=== PATIENT | female | born 1950 | race Caucasian/White ===

== ENCOUNTER 2024-03-02 14:29 | Inpatient (IN) ==
--- NOTE | 2024-03-02 14:36 | Emergency Department Note ---
Impression & Plan New onset of congestive heart failure, Type 2 diabetes mellitus, CKD (chronic kidney disease) stage 3, GFR 30-59 ml/min, Acute dyspnea ED Provider Note NAME: GREGORY HAMILTON AGE: 73 SEX: F : 1950 ARRIVES VIA: Ambulance INFORMANT: Patient, EMS report ED PROVIDER(S): Jeffry Coe MD CHIEF COMPLAINT: Shortness of breath MEDICAL DECISION MAKING: Patient presents due to concern for shortness of breath. IV was established and blood work was obtained. Patient was noted to be hypertensive. Patient does have bibasilar crackles and significant lower extremity edema consistent with hypervolemia and volume overload. Patient was ordered nitro to help with elevated blood pressure as well as 40 of Lasix. Patient's blood work shows a normal white count hemoglobin of 17.8 with a platelet count of 122. The patient's kidney function is unremarkable. Patient does have elevated troponin of 65 and a BNP of 1071. Upon reassessment the patient did look to be improved. I did speak with the on-call hospital service Sophy De La Paz and the patient was admitted by Dr. Boo. Discussion w/ other healthcare providers: None Prior /Outside records reviewed: I reviewed a PCP visit from August 10, 2023. Patient was seen for follow-up. Patient has been having problems with her CGM. Reported good sleep and appetite. Known history of type 2 diabetes reported foreign body of soft tissue of the humerus. CKD stage III. Visit note does not note any lower extremity swelling. Differential diagnosis: Reactive airway disease, pneumonia, pneumothorax, COPD, CHF, ACS, pulmonary embolism, musculoskeletal, GERD as well as other pathologies were considered. Diagnostics, as interpreted by me: ECG: Sinus tachycardia with PVCs, rate of 110, normal DC and QRS, normal axis no ST elevations Cardiac monitoring: An order was placed for continuous cardiac monitoring. The monitor shows a rate of 110 with tachycardic and regular rhythm. Patient was placed on pulse oximetry Medical decision rules: None Imaging studies: I informally interpreted the patient's chest x-ray shows bilateral pleural effusions with formal report to follow. HPI: Patient presents due to concern for worsening shortness of breath. Patient is hard of hearing. She states that she got a virus at the beginning of January and does not report any treatments. She does follow with a [facility]. The patient does complain of shortness of breath and cough that is nonproductive. Patient per EMS and nursing report intermittently takes insulin. Patient denies taking any other medications. Patient's history is somewhat limited at this time. PAST MEDICAL HISTORY: See Below PAST SURGICAL HISTORY: See Below SOCIAL HISTORY: See Below HOME MEDICATIONS: See Below ALLERGIES: See Below VITALS: See Below PHYSICAL EXAMINATION: GENERAL: Ill in appearance, mild tachypnea. Hard of hearing. EYE EXAM: Normal conjunctiva. PERRL, no anisocoria and EOM's grossly intact w/o pain. OROPHARYNX: Dry mucus membranes, grossly normal dentition. NECK: Trachea midline, no stridor. JVD noted. LUNGS: Bibasilar crackles with decreased bilateral breath sounds bilateral bases. Mild tachypnea. HEART: Tachycardic and regular, no MRG. ABDOMEN: Abdomen soft, non-tender, no masses, no rebound or guarding. BACK: No CVA TTP. SKIN: No rashes and no bruising. UPPER EXTREMITIES: Upper extremities are grossly normal. LOWER EXTREMITIES: Grossly normal, lower extremity edema without calf pain or erythema, pedal pulses present compartments are soft. NEURO EXAM: A&O x3, cranial nerves II-XII grossly intact, normal speech, moves all 4 extremities. Past Med/Surg History Problem List (Updated 03/02/24 @ 17:26 by Jeffry Coe MD) Acute dyspnea (Acute) New onset of congestive heart failure (Acute) CKD (chronic kidney disease) stage 3, GFR 30-59 ml/min (Acute) Type 2 diabetes mellitus (Acute) Medical History Hypothyroidism Migraine without aura and without status migrainosus, not intractable Pneumothorax, left Multiple fractures of ribs Sternal fracture Surgical History History of tonsillectomy History of hysterectomy History of appendectomy Family History Father Cancer Mother Hypertension Social History Smoking Status: Never smoker Preferred Language: Mohawk Feels Safe at Home: Yes Allergies Allergies Allergy/AdvReac Type Severity Reaction Status Date / Time No Known Allergies Allergy Verified 03/02/24 16:01 Home Meds Home Medications Medication Instructions Recorded Confirmed acetaminophen 325 mg tablet 650 mg PO TID PRN pain/fever 03/02/24 03/02/24 (Tylenol) insulin aspart U-100 100 unit/mL 6 unit subcut TID 03/02/24 03/02/24 (3 mL) subcutaneous pen insulin glargine 100 unit/mL (3 20 unit subcut HS 03/02/24 03/02/24 mL) subcutaneous pen (Lantus Solostar U-100 Insulin) metformin 500 mg tablet,extended 500 mg PO BIDM 03/02/24 03/02/24 release 24 hr Results & Data (ED) Vital Signs Vital Signs - 24 hr 03/02/24 14:35 03/02/24 14:45 03/02/24 14:46 Temperature 36.5 C Temperature Source Oral Pulse Rate 109 H Pulse Rate [Apical] Respiratory Rate 18 Blood Pressure 161/117 H Blood Pressure [Left Arm] Blood Pressure Mean 131 Blood Pressure Mean [Left Arm] Blood Pressure Position Semi-fowlers Pulse Oximetry 97 Oxygen Delivery Method Room Air Room Air Room Air Sepsis Recent Fever Within 48 Hours No Sepsis New/Unexplained Change in Mental Status No Sepsis Action Taken by Nursing No Action Required 03/02/24 14:46 03/02/24 14:50 03/02/24 17:08 Temperature 36.5 C Temperature Source Oral Pulse Rate 109 H Pulse Rate [Apical] 108 H 112 H Respiratory Rate 18 18 Blood Pressure Blood Pressure [Left Arm] 161/117 H 156/121 H Blood Pressure Mean Blood Pressure Mean [Left Arm] 131 132 Blood Pressure Position Pulse Oximetry 97 95 96 Oxygen Delivery Method Room Air Room Air Room Air Sepsis Recent Fever Within 48 Hours Sepsis New/Unexplained Change in Mental Status Sepsis Action Taken by [facility] Medications Current Medication List: was personally reviewed by me Laboratory Data Attestation: I reviewed the patient's lab results. 03/02/24 14:50 03/02/24 14:50 Lab Results 03/02/24 03/02/24 03/02/24 Range/Units 14:50 14:59 15:54 WBC 9.58 (4.8-10.8) K/ul RBC 6.61 H (4.20-5.40) M/uL Hgb 17.8 H (12.0-16.0) g/dl POC Hgb 19.4 H (12.0-16.0) g/dl Hct 57.8 H (37.0-47.0) % POC Hct 57 H (37-47) % MCV 87.4 (80.0-100.0) fL MCH 26.9 (25.0-34.0) pg MCHC 30.8 L (32.0-36.0) g/dL RDW Std Deviation 47.3 H (36.4-46.3) fL RDW Coeff of Gypsy 17.0 H (11.5-14.5) % Plt Count 122 L (130-400) K/uL MPV 11.8 (9.4-12.4) fL Immature Gran % (Auto) 0.5 % Neut % (Auto) 81.4 % Lymph % (Auto) 6.3 % [place] % (Auto) 10.8 % Eos % (Auto) 0.8 % Baso % (Auto) 0.2 % Neut # (Auto) 7.80 H (1.40-6.50) K/uL Lymph # (Auto) 0.60 L (1.20-3.40) K/uL [place] # (Auto) 1.03 H (0.11-0.59) K/uL Eos # (Auto) 0.08 (0.00-0.50) K/uL Baso # (Auto) 0.02 (0.00-0.20) K/uL Immature Gran # (Auto) 0.05 (0.01-0.20) K/uL PT 12.5 H (9.0-12.0) Seconds INR 1.2 H (0.9-1.1) APTT 24 (21-31) Seconds PTT Ratio 0.9 POC Sodium 144 (135-144) mmol/L Sodium 144 (136-145) mmol/L POC Potassium 4.1 (3.3-5.0) mmol/L Potassium 4.2 (3.5-5.1) mmol/L POC Chloride 104 (101-112) mmol/L Chloride 104 (98-107) mmol/L Carbon Dioxide 28 (21-32) mmol/L POC Total CO2 24 (24-31) mmol/L Anion Gap 12 H (3-11) POC Anion Gap 21.0 (16-25) mmol/L POC BUN 30 H (7-18) mg/dl BUN 30 H (6-23) mg/dl Creatinine 0.80 (0.6-1.2) mg/dl POC Creatinine 0.8 (0.6-1.3) mg/dl Est Cr Clr Drug Dosing Not Reportable Est GFR ( Amer) 83.6 ml/min Est GFR (Non-Af Amer) 72.1 ml/min BUN/Creatinine Ratio 37.5 H (10-20) Glucose 163 H (70-99(Fasting)) mg/dl POC Glucose (other) 159 H (70-99) mg/dl Calcium 9.5 (8.6-10.3) mg/dl POC Ioniz Calcium Delmis 1.11 L (1.12-1.32) mmol/l Magnesium 2.2 (1.7-2.4) mg/dl Total Bilirubin 1.9 H (0.2-1.0) mg/dl AST 27 (13-39) U/L ALT 25 (7-52) U/L Alkaline Phosphatase 111 H (34-104) U/L Troponin I High Sens 65.4 H* (0-14) pg/ml B-Natriuretic Peptide 1071 H (0-100) pg/ml Total Protein 7.1 (6.0-8.3) gm/dl Albumin 4.1 (3.4-5.0) gm/dl Globulin 3.0 (2.5-4.0) gm/dl Albumin/Globulin Ratio 1.4 (0.9-2) Administered Medications Discontinued Medications Furosemide (Furosemide 40 Mg/4 Ml Vial) 40 mg IV ONE ONE Stop: 03/02/24 14:48 Last Admin: 03/02/24 15:09 Dose: 40 mg Documented By: SEAN Nitroglycerin (Nitroglycerin Sl 0.4 Mg/Tab Tab) 0.4 mg SL NOW STA Stop: 03/02/24 14:48 Last Admin: 03/02/24 15:07 Dose: 0.4 mg Documented By: SEAN Imaging Data Radiologist's Impression: Chest X-Ray 03/02/24 14:48 XR chest 1V portable HISTORY: 73 years-old Female Dyspnea acute shortness of breath COMPARISON: Chest CT 12/28/2022 TECHNIQUE: AP view of the chest. FINDINGS: Bilateral breast implants with capsular calcifications redemonstrated on the right. Cardiomegaly. Pulmonary vascular congestion. Layering right greater than left pleural effusions with bibasilar consolidation. No pneumothorax. Bones appear grossly intact. IMPRESSION: 1. Cardiomegaly with pulmonary vascular congestion. 2. Layering pleural effusions with bibasilar consolidation, right greater than left. ACT 112: Negative or not required by law. The above report was generated using voice recognition software. It may contain grammatical, syntax or spelling errors. Electronically signed by: Terry Jasso M.D. 03/02/2024 3:15 PM Discharge Plan Visit Data Chief Complaint: Shortness of Breath/Dyspnea Stated Complaint: SOB ED Provider: Jeffry Coe Discharge Problem: New onset of congestive heart failure, Type 2 diabetes mellitus, CKD (chronic kidney disease) stage 3, GFR 30-59 ml/min, Acute dyspnea Forms Stand Alone Forms: [email or web address] Prescriptions Prescriptions: No Action metformin 500 mg tablet extended release 24 hr 500 mg PO BIDM Rx Instructions: PER PT "NOT TAKEN FOR COUPLE OF DAYS, NEED TO HUMANITIES TEACHER A PHARMACY". insulin aspart U-100 100 unit/mL (3 mL) insulin pen 6 unit SUBCUT TID Rx Instructions: PER PT "NOT TAKEN SINCE January, NEED TO HUMANITIES TEACHER AT PHARMACY". acetaminophen [Tylenol] 325 mg Tablet 650 mg PO TID PRN (Reason: pain/fever) insulin glargine [Lantus Solostar U-100 Insulin] 100 unit/mL (3 mL) insulin pen 20 unit SUBCUT HS Rx Instructions: PER EXT MED HX--LAST FILLED 03/23/23 Referrals Referrals: PCP,NO [Physician] - Discharge Problem: Type 2 diabetes mellitus Qualifiers: Diabetes mellitus intermediate insulin use: unspecified intermediate insulin use status CKD (chronic kidney disease) stage 3, GFR 30-59 ml/min Qualifiers: Chronic kidney disease stage 3 subtype: unspecified whether 3a or 3b Qualified Code(s): N18.30 - Chronic kidney disease, stage 3 unspecified
[2024-03-02] MEDS: NITROGLYCERIN SL 0.4 MG/TAB TAB SL STA (15:07)
[2024-03-02] MEDS: FUROSEMIDE 40 MG/4 ML VIAL IV ONE (15:09)
[2024-03-02 15:13] LABS: iSTAT Creatinine 0.8 mg/dl (0.6-1.3); iSTAT Hemoglobin 19.4 g/dl (12.0-16.0); iSTAT Ionized Calcium 1.11 mmol/l (1.12-1.32); iSTAT Potassium 4.1 mmol/L (3.3-5.0)
[2024-03-02 15:16] LABS: Hematocrit (blood only) 57.8 % (37.0-47.0); Hemoglobin 17.8 g/dl (12.0-16.0); Mean Corpuscular Hemoglobin 26.9 pg (25.0-34.0); Mean Corpuscular Hgb Conc 30.8 g/dL (32.0-36.0); Mean Corpuscular Volume 87.4 fL (80.0-100.0); Mean Platelet Volume 11.8 fL (9.4-12.4); Platelet Count 122 K/uL (130-400); RDW Standard Deviation 47.3 fL (36.4-46.3); Red Blood Count 6.61 M/uL (4.20-5.40); White Blood Count 9.58 K/ul (4.8-10.8)
--- NOTE | 2024-03-02 15:16 | XRay Report ---
XR chest 1V portable HISTORY: 73 years-old Female Dyspnea acute shortness of breath COMPARISON: Chest CT 12/28/2022 TECHNIQUE: AP view of the chest. FINDINGS: Bilateral breast implants with capsular calcifications redemonstrated on the right. Cardiomegaly. Pul monary vascular congestion. Layering right greater than left pleural effusions with bibasilar consoli dation. No pneumothorax. Bones appear grossly intact. IMPRESSION: 1. Cardiomegaly with pulmonary vascular congestion. 2. Layering pleural effusions with bibasilar consolidation, right greater than left. ACT 112: Negative or not required by law. The above report was generated using voice recognition software. It may contain grammatical, syntax o r spelling errors. Electronically signed by: Terry Jasso M.D. 03/02/2024 3:15 PM
[2024-03-02 15:27] LABS: Alanine Aminotransferase 25 U/L (7-52); Albumin Globulin Ratio 1.4 (0.9-2); Albumin Level 4.1 gm/dl (3.4-5.0); Alkaline Phosphatase 111 U/L (34-104); Anion Gap 12 (3-11); Aspartate Aminotransferase 27 U/L (13-39); BUN Creatinine Ratio 37.5 (10-20); Bilirubin,Total 1.9 mg/dl (0.2-1.0); Blood Urea Nitrogen 30 mg/dl (6-23); Calcium 9.5 mg/dl (8.6-10.3); Carbon Dioxide 28 mmol/L (21-32); Chloride 104 mmol/L (98-107); Est GFR (African American) 83.6 ml/min; Est GFR (Non-African American) 72.1 ml/min; Glucose 163 mg/dl (70-99(Fasting)); Magnesium 2.2 mg/dl (1.7-2.4); Potassium 4.2 mmol/L (3.5-5.1); Sodium 144 mmol/L (136-145); Total Protein 7.1 gm/dl (6.0-8.3)
[2024-03-02 15:36] LABS: Troponin I High Sensitivity 65.4 pg/ml (0-14)
[2024-03-02 15:45] LABS: Basophils # (auto) 0.02 K/uL (0.00-0.20); Basophils % (auto) 0.2 %; Eosinophils # (auto) 0.08 K/uL (0.00-0.50); Eosinophils % (auto) 0.8 %; Immature Granulocytes # (auto) 0.05 K/uL (0.01-0.20); Immature Granulocytes % (auto) 0.5 %; Lymphocytes % (auto) 6.3 %; Monocytes # (auto) 1.03 K/uL (0.11-0.59); Monocytes % (auto) 10.8 %; Neutrophils % (auto) 81.4 %
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
[2024-03-02 16:13] LABS: INR 1.2 (0.9-1.1); Partial Thromboplastin Ratio 0.9; Partial Thromboplastin Time 24 Seconds (21-31); Prothrombin Time 12.5 Seconds (9.0-12.0)
--- NOTE | 2024-03-02 16:18 | Electrocardiogram Report ---
Test Reason : Blood Pressure : / mmHG Vent. 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
[2024-03-02 17:20] LABS: Appearance Urine Clear (Clear); Bacteria Urine Automated 3+ (None Seen); Bilirubin Urine Negative (Negative); Blood Urine Negative (Negative); Color Urine Yellow; Epithelial Cell Urine Auto 0-2 /hpf (0-2); Glucose Urine UA Negative (Negative); Ketones Urine Negative (Negative); Leukocyte Esterase Urine Negative (Negative); Nitrite Urine Negative (Negative); Protein Urine Trace (Negative); RBC Urine Automated 0-2 /hpf (0-2); Specific Gravity Urine 1.008 (1.000-1.030); Urobilinogen Urine Negative (Negative); WBC Urine Automated 0-5 /hpf (0-5); pH Urine 5.5 (4.5-7.5)
[2024-03-02 18:24] LABS: Troponin I High Sensitivity 54.7 pg/ml (0-14)
[2024-03-02 18:30] LABS: Thyroid Stimulating Hormone 4.596 uIu/ml (0.300-4.500)
[2024-03-02] MEDS ORDERED: GLUCOSE 10 TAB/TUBE PO PRN (18:39)
[2024-03-02] MEDS ORDERED: CARBOHYDRATES FOR HYPOGLYCEMIA PO PRN (18:39)
[2024-03-02] MEDS ORDERED: DEXTROSE 50% 50 ML SYRINGE IV PRN (18:39)
[2024-03-02] MEDS ORDERED: GLUCOSE 40% GEL 15 GM TUBE PO PRN (18:39)
[2024-03-02] MEDS ORDERED: GLUCAGON FOR INJ 1 MG VIAL SQ PRN (18:39)
[2024-03-02 19:23] LABS: T4 Free Thyroxine 1.42 ng/dl (0.61-1.60)
[2024-03-02] MEDS: lisinopril 2.5 MG TAB PO SCH (19:38)
[2024-03-02] MEDS: FUROSEMIDE 40 MG/4 ML VIAL IV SCH (19:39)
[2024-03-02] MEDS: LANTUS PER UNIT CHARGE SQ SCH (21:22)
[2024-03-02] MEDS: INSULIN ASPART PER UNIT CHARGE SC SCH (21:22)
[2024-03-02] MEDS: HEPARIN SOD 5,000 UNIT/0.5 ML VIAL SQ SCH (21:23)
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
--- OUTSIDE RECORDS SUMMARY | 2024-03-02 21:25 | External Medical Summary | Summary of Care ---
Author Name Unknown Organization [facility] Address [address] [place] [address] Phone [phone] Care Team Providers Care Contact Lens Technician Name Role Phone Mago Gutierrez PA-C Primary Care Provider [phone] Encounter Details Date Type Department Care Team (Late st Contact Info) Description [facility] [address] [place] [address] Mago Gutierrez PA-C [address] [facility] [place] [address] Allergies No known active allergiesdocumented as of this encounter (statuses as of 10/16/2023) Medications Medication Sig Dispensed Refills Start Date [...] Strip 0 01/01/2023 Active OneTouch Delica Plus [id number] Use as directed. 200 Each 0 01/01/2023 [...] inject insulin. 400 Each 1 04/27/2023 Active documented as of this encounter (statuses as of 10/16/2023) Active Problems Problem Noted Date Diagnosed Date [...] as of this encounter (statuses as of 10/16/2023) Resolved Problems Problem Noted Date Diagnosed Date Resolved Date Migraine without status migr ainosus, not intractable 02/03/2023 08/10/2023 Compression fracture of L2 lumbar vertebra 01/01/2023 08/10/2023 Menopause 06/02/2004 09/20/2017 Hypothyroidism 06/02/2004 08/10/2023 Migraine 09/06/2017 documented as of this encounter (statuses as of 10/16/2023) Immunizations Name Administration Dates Next Due Pneumococcal Conjugate Vacc, 13 Valent (Prevnar) 11/04/2017 TD, Preservative Free 11/04/2017, 018(Deferred: Patient Refused) [...] (15 years old or older) No 12/29/19 Cognitive Status Response Date of Assessm ent Because of a physical, menta l, or emotional condition, do you have serious difficulty concentrating, remembering, or making decisions? (5 years old or older) No 12/28/2022 documented as of this encounter Miscellaneous Notes * Telephone Encounter - Alicia Gonzalez CPhT - 07/17/2023 10:23 AM EST Patient calling stating her Jose Martin Sensor is not working, advised patient to contact her pharmacy for further assistance and they should be able to give her a new one. Thank you, Alicia Gonzalez, Carousel Operator I [facility] (Formerly Telepharmacy) 07/17/2023, 10:30 AM documented in this encounter Plan of Treatment Upcoming Encounters Date Type Department Care Team (Late st Contact Info) Description 02/08/2024 2:00 PM EDT Office Visit Family Practice [facility] [place] [address] [place] [address] Mago Gutierrez PA-C [address] [facility] [place] [address] Health Maintenance Due Date Last Done Comments DXA Scan 1950 B-12 1968 Hepatitis C Screening 1966 Zoster Vaccines (1 of 2) 1998 COVID-19 Vaccine (2022- season) 2023 Influenza Vaccine (FLU shot) (#1) 2023 HbA1c 07/01/2023 12/29/2022, 09/09, 09/20/2017 GFR 07/04/2023 01/01/2023, 12/08, 12/30/2022, Additional history exists CKD HGB USE SMARTSET 69780 01/02/202401/01, 12/31/2022, 12/30/2022, Additional history exists CKD PHOS USE SMARTSET 41863 01/02/202412/08, 12/31/2022, 12/30/2022, Additional history exists Albumin/Creatinine [...] the patient have Health Care Power of Nurse Practitioner Home Assessments? No Care Teams Contact Lens Technician Relationship Specialty Start Date End Date Beverleynovember DEVYN [place] [address] [place] [address] PCP - General Physician Engraver Lettering 04/05/23 documented as of this encounter
--- OUTSIDE RECORDS SUMMARY | 2024-03-02 21:25 | External Medical Summary | Summary of Care ---
Author Name Unknown Organization [facility] Address [address] [place] [address] Phone [phone] Care Team Providers Care Child Development Teacher Name Role Phone Mago Gutierrez PA-C Primary Care Provider [phone] Reason for Visit * Reason Onset Date Comments Medication Refill 02/07/2024 Encounter Details Date Type Department Care Team (Late st Contact Info) Description 02/07/[facility] [address] [facility] [place] [address] Mago Gutierrez PA-C [address] [facility] [place] [address] Type 2 diabetes mellitus with other specified complication, unspecified whether shelter insulin use (HCC)* Allergies No known active allergiesdocumented as of this encounter (statuses as of 02/14/2024) Medications Medication Sig Dispensed Refills Start Date End Date Status Lidocaine 4 % External Patch (Aspercreme) Place 1 Patch topically on the skin daily in the morning over 12 hours. Leave on for 12 hours, then remove and leave off for 12 hours before applying new patch. Do not start before January 02, 2023. 30 Patch 01/02/2023 Active Additional Information Patient not taking.Reported on 08/10/2023 Sennosides 8.6 MG Oral Tablet (Senokot) Take 2 Tablets by mouth in the morning. Do not start before January 02, 2023. 60 Tablet 01/02/2023 Active Additional Information Patient not taking.Reported on 02/03/2023 traMADol HCl 50 MG Oral Tablet (Ultram) Take one-half tablet by mouth every 4 hours as needed for moderate pain, may take 1 tablet every 4 hours if needed for severe pain. 15 Tablet 01/01/2023 Active Additional Information Patient not taking.Reported on 02/03/2023 OneTouch Verio In Vitro Strip (Glucose Blood) Check glucose before meals and before bed 200 Strip 01/01/2023 Active OneTouch Delica Plus [id number] Use as directed. 200 Each 01/01/2023 Active Acetaminophen 325 MG Oral Tablet Take 1 Tablet by mouth every 6 hours as needed. Active Lantus SoloStar 100 UNIT/ML Subcutaneous Solution Pen-injector (Insulin Glargine Solostar) INJECT 20 UNITS UNDER THE SKIN EVERY NIGHT AT BEDTIME 15 mL 1 03/22/2023 Active Unifine Pentips 32G X 4 MM (Insulin Pen Needle) Use 3-4 times daily to inject insulin. 400 Each 1 04/27/2023 Active metFORMIN HCl ER 500 MG Oral Tablet Extended Release 24 Hour (Glucophage XR) Take 1 Tablet by mouth 2 times a day with morning and evening meals. 60 Tablet 2 01/12/2024 Active NovoLOG FlexPen 100 UNIT/ML Subcutaneous Solution Pen-injector (insulin aspart) INJECT 6 UNITS UNDER THE SKIN IN THE MORNING AND 6 UNITS AT NOON AND 6 UNITS IN THE EVENING WITH MEALS SEE SLIDING SCALE WELL 9 mL 2 01/12/2024 Active FreeStyle Jose Martin 2 Sensor Use as directed. Change sensor every 14 days. E11.9 6 Each 02/08/2024 Active FreeStyle Jose Martin 2 Sensor Use as directed. Change sensor every 14 days. E11.9 2 Each 12 11/25/2023 Discontinue d(Refill) documented as of this encounter (statuses as of 02/14/2024) Active Problems Problem Noted Date Diagnosed Date [...] as of this encounter (statuses as of 02/14/2024) Resolved Problems Problem Noted Date Diagnosed Date Resolved Date Migraine without status migr ainosus, not intractable 02/03/2023 08/10/2023 Compression fracture of L2 lumbar vertebra 01/01/2023 08/10/2023 Menopause 06/02/2004 09/20/2017 Hypothyroidism 06/02/2004 08/10/2023 Migraine 09/06/2017 documented as of this encounter (statuses as of 02/14/2024) Immunizations Name Administration Dates Next Due Pneumococcal Conjugate Vacc, 13 Valent (Prevnar) 11/04/2017 Pneumococcal Conjugate Vacci ne, 20-valent ([id number]) 08/10/2023 TD, Preservative Free 11/04/2017, 018(Deferred: Patient Refused) TDAP, Age 7 and older, IM (Adacel) 04/05/2006 documented as of this encounter Social History Tobacco Use Types Packs/Day Years Used Date Smoking Tobacco: Never Smokeless Tobacco: Never Alcohol Use Standard Drinks/Week Comments Yes 0 (1 standard drink = 0.6 oz pur e alcohol) rare, social PHQ-2 Answer Date Recorded PHQ-2 Score -1 06/12/2018 Hunger Vital Sign Answer Date Recorded Within the past 12 months, y ou worried that your food would run out before you got the money to buy more. Never true 08/10/19 24 Within the past 12 months, t he food you bought just didn't last and you didn't have money to get more. Never true 08/10/2023 Childcare Answer Date Recorded Do you feel overwhelmed with taking care of a child, family member or friend? No 08/10/2023 Does your family need help f inding childcare? (Household - for ages 0-17 years) Not on file 08/10/2023 Clothing Answer Date Recorded Have you been unable to get clothing when it was really needed? No 08/10/2023 Is your family able to get c lothes or diapers when needed? (Household - for ages 0-17 years) Not on file 08/10/2023 Personal Safety Answer Date Recorded Do you feel unsafe or have concerns for your saf ety? No 08/10/2023 Do you have concerns for you r family's safety? (Household - for ages 0-17 years) Not on file 08/10/2023 Utilities Answer Date Recorded Do you have trouble paying y our heating, water, or electric bill? Yes 08/10/2023 Is your family able to pay t he heat, water, or electric bill? (Household - for ages 0-17 years) Not on file 08/10/2023 Does your family have access to good internet? (Household - for ages 0-17 years) Not on file 08/10/2023 Employment Status Answer Date Recorded Are you unemployed or without regular income? No 08/10/2023 Does the household have a re lar source of income? (Household - for ages 0-17 years) Not on file 08/10/2023 Social Connections Answer Date Recorded How often do you feel lonely or isolated from th ose around you? Rarely 08/10/2023 Financial Resource Strain Answer Date R ecorded Do you have any trouble payi ng for your medications, or do you think you might in the future? Yes 08/10/2023 Does your family have troubl e paying for medicine? (Household - for ages 0-17 years) Not on file 08/10/2023 Transportation Needs Answer Date Record ed READ ONLY Do you have troubl e getting a ride to medical visits or work? Never True 08/10/2023 Does your family have a hard time getting a ride to doctors visits? (Household - for ages 0-17 years) Not on file 08/10/2023 Has lack of transportation k ept you from medical appointments, meetings, work, or from getting things needed for daily living? Check all that apply. (Adult - for ages 18 years and over) Not on file 08/10/2023 Do you (or your family) have trouble finding or paying for a ride (transportation)? (Household - for ages 0-17 years) Not on file 08/10/2023 Housing Stability Answer Date Recorded Do you currently live in a s helter or have no steady place to sleep at night? No 08/10/2023 READ ONLY Do you think you a re at risk of becoming homeless? No 08/10/2023 Does your family worry about paying for your home or becoming homeless? (Household - for ages 0-17 years) Not on file 0 08/10/2023 Are you homeless or worried that you might be in the future? (Adult - for ages 18 years and over) Not on file Are you (or your family) matty eless or worried that you might be in the future? (Household - for ages 0-17 years) Not on file Food Insecurity Answer Date Recorded Do you need food for this week? No 08/10/2023 Are you able to get enough f ood for your family? (Household - for ages 0-17 years) Not on file 08/10/2023 Does your family need food t his week? (Household - for ages 0-17 years) Not on file 08/10/2023 Do you always have enough fo od for your family? (Household - for ages 0-17 years) Not on file 08/10/2023 Sex and Gender Information Value Date Recorded [...] encounter Miscellaneous Notes * Telephone Encounter - Russ Torres - 02/14/2024 11:55 AM EDT Received message from [facility] regarding patient needing labs. Patient was notified. Successfully contacted patient and provided [facility] message. * Telephone Encounter - Wenceslao Sykes [facility] - 02/08/2024 11:50 AM EDT Signed Prescriptions: Disp Refills FreeStyle Jose Martin 2 Sensor 6 Each 0 Sig: Use as directed. Change sensor every 14 days. E11.9 Authorizing Provider: MAGO GUTIERREZ Ordering User: WENCESLAO SYKES * Telephone Encounter - Wenceslao Sykes [facility] - 02/08/2024 11:48 AM EDT Provided 84 days supply with 0 refill(s). Per refill protocol patient should have [place]/cr,BMP,B12,A1C,lipid panel on file within past year. Reviewed AMP report, Care Gaps/Health Maintenance, medications list, and for any routine labs typically ordered for this patient. Lab orders placed. Please contact patient to advise of labs ordered for blood draw AND URINE specimen (patient will have to be able to void to provide sample). Recommend patient to fast if able for labs. Patient may still have water and regular medications. Advise to obtain labs before requesting the next refill. Thank you, Wenceslao Sykes, PharmD Clinical Pharmacist [facility] ([facility]) [phone] 02/08/2024, 11:49 AM documented in this encounter Plan of Treatment Scheduled Orders Name Type Priority Associated Diagnoses Orde r Schedule ALBUMIN / CREATININE RATIO, URINE Lab Routine Type 2 diabetes mellitus with other specified complication, unspecified whether shelter insulin use (HCC) Expected: 02/08/2024, Expires: 02/07/2025 LIPID PANEL WITH DIRECT LDL IF TG IS HIGH Lab Routine Type 2 diabetes mellitus with other specified complication, unspecified whether terminal makeup operator insulin use (HCC) Expected: 02/08/2024 (Approximate), Expires: 02/07/2025 Health Maintenance Due Date Last Done Comments DXA Scan 1950 B-12 1968 Hepatitis C Screening 1968 Zoster Vaccines (1 of 2) 1998 COVID-19 Vaccine ( season) 2023 HbA1c 07/01/2023 12/29/2022, 09/09, 09/20/2017 GFR 07/04/2023 01/01/2023, 12/08, 12/30/2022, Additional history exists CKD HGB USE SMARTSET 89211 01/02/202401/01, 12/31/2022, 12/30/2022, Additional history exists CKD PHOS USE SMARTSET 31066 01/02/202412/08, 12/31/2022, 12/30/2022, Additional history exists Albumin/Creatinine Ratio 01/12/2024 01/11/2023 Influenza Vaccine (FLU shot) (#1) 2024 Depression Screening 08/10/2024 08/10/2023 Diabetic Eye Exam 08/10/2024 08/10/2023 Diabetic Foot Exam 08/10/2024 08/10/2023 DTaP,Tdap,and Td Vaccines (3 - Td or Tdap) 11/05/2027 11/04/2017, 04/05/2006 Pneumococcal Vaccine: 65+ Years Completed 08/10/2023, 11/04/2017 HPV (Gardasil) Vaccine Aged Out No lo nger eligible based on patient's age to complete this topic Hepatitis B Vaccine Aged Out No longe r eligible based on patient's age to complete this topic MENINGOCOCCAL (MENACTRA/MENVEO) Aged Out No longer eligible based on patient's age to complete this topic documented as of this encounter Medical Devices Not on filedocumented as of this encounter Visit Diagnoses Diagnosis Type 2 diabetes mellitus with other specified complication, unspecified whether terminal makeup operator insulin use (HCC)- Primary documented in this encounter Advance Directives * Full Code (Latest Code Status on File) Date Activated Date Inactivated Comments 12/28/2022 8:27 PM 01/01/2023 6:47 PM Question Answer Comments Discussion of Advance Direct [email or web address] occurred with: Not Discussed due to patient's condition Does the patient have a Living Will? No Does the patient have Health Care Power of Warehouse Helper? No Care Teams Child Development Teacher Relationship Specialty Start Date End Date MattNovember DEVYN [place] [address] [place] [address] PCP - General Physician Stake Driver 04/05/23 documented as of this encounter
--- OUTSIDE RECORDS SUMMARY | 2024-03-02 21:25 | External Medical Summary | Summary of Care ---
Author Name Unknown Organization [facility] Address [address] [place] [address] Phone [phone] Care Team Providers Care Mixer Helper Name Role Phone Mago Gutierrez PA-C Primary Care Provider [phone] Reason for Visit * Reason Onset Date Comments Medication Refill 01/11/2024 Encounter Details Date Type Department Care Team (Late st Contact Info) Description 01/11/2024 Refill Family Practice [facility] [place] [address] [facility] [place] [address] Mago Gutierrez PA-C [address] [facility] [place] [address] Allergies No known active allergiesdocumented as of this encounter (statuses as of 01/12/2024) Medications Medication Sig Dispensed Refills Start Date [...] 200 Strip 01/01/2023 Active OneTouch Delica Plus [id number] Use as directed. 200 Each 01/01/2023 Active [...] 14 days. E11.9 2 Each 12 11/25/2023 Active metFORMIN HCl ER 500 MG Oral [...] SCALE WELL 9 mL 2 01/12/2024 Active metFORMIN HCl ER 500 MG Oral Tablet Extended Release 24 Hour (Glucophage XR) Take 1 Tablet by mouth 2 times a day with morning and evening meals. 60 Tablet 2 09/01/2023 4 Discontinue d(Refill) NovoLOG FlexPen 100 UNIT/ML Subcutaneous Solution Pen-injector (insulin aspart) INJECT 6 UNITS UNDER THE SKIN IN THE MORNING AND 6 UNITS AT NOON AND 6 UNITS IN THE EVENING WITH MEALS SEE SLIDING SCALE WELL 9 mL 2 09/01/2023 4 Discontinue d(Refill) documented as of this encounter (statuses as of 01/12/2024) Active Problems Problem Noted Date Diagnosed Date [...] as of this encounter (statuses as of 01/12/2024) Resolved Problems Problem Noted Date Diagnosed Date Resolved Date Migraine without status migr ainosus, not intractable 02/03/2023 08/10/2023 Compression fracture of L2 lumbar vertebra 01/01/2023 08/10/2023 Menopause 06/02/2004 09/20/2017 Hypothyroidism 06/02/2004 08/10/2023 Migraine 09/06/2017 documented as of this encounter (statuses as of 01/12/2024) Immunizations Name Administration Dates Next Due Pneumococcal Conjugate Vacc, 13 Valent (Prevnar) 11/04/2017 Pneumococcal Conjugate Vacci ne, 20-valent ([id number]) 08/10/2023 TD, Preservative Free 11/04/2017, 018(Deferred: Patient [...] encounter Miscellaneous Notes * Telephone Encounter - Mago Gutierrez PA-C - 01/12/2024 7:18 PM EDTSigned Prescriptions: Disp Refills metFORMIN HCl ER 500 MG Oral Tablet Extend*60 Tab*2 Sig: Take 1 Tablet by mouth 2 times a day with morning and evening meals. Authorizing Provider: MAGO GUTIERREZ NovoLOG FlexPen 100 UNIT/ML Subcutaneous S*9 mL 2 Sig: INJECT 6 UNITS UNDER THE SKIN IN THE MORNING AND 6 UNITS AT NOON AND 6 UNITS IN THE EVENING WITH MEALS SEE SLIDING SCALE WELL Authorizing Provider: MAGO GUTIERREZ Refused Prescriptions: Disp Refills FreeStyle Jose Martin 2 Sensor 2 Each 12 Sig: Use as directed. Change sensor every 14 days. E11.9 Refused By: TERRY BEAVER Reason for Refusal: Refill Not Appropriate Reason for Refusal Comment: gets via DME per medicare * Telephone Encounter - Terry Beaver [facility] - 01/12/2024 3:41 PM EDTPending Prescriptions: Disp Refills metFORMIN HCl ER 500 MG Oral Tablet Extend*60 Tab*2 Sig: Take 1 Tablet by mouth 2 times a day with morning and evening meals. NovoLOG FlexPen 100 UNIT/ML Subcutaneous S*9 mL 2 Sig: INJECT 6 UNITS UNDER THE SKIN IN THE MORNING AND 6 UNITS AT NOON AND 6 UNITS IN THE EVENING WITH MEALS SEE SLIDING SCALE WELL R efused Prescriptions: Disp Refills FreeStyle Jose Martin 2 Sensor 2 Each 12 Sig: Use as directed. Change sensor every 14 days. E11.9 Refused By: TERRY BEAVER Reason for Refusal: Refill Not Appropriate Reason for Refusal Comment: gets via DME per medicare * Telephone Encounter - Terry Beaver [facility] - 01/12/2024 3:37 PM EDT Unable to authorize medication refills for pended medication(s) at this time. Part of the protocol criteria used for refill authorization was not satisfied. Patient's A1c is well above goal/protocol parameters. Pt has been outreached previously about [facility] referral for DM management without response. HGBA1C Date Value Ref Range Status 12/29/2022 12.4 (H) 4.0 - 5.6 % Final Comment: The use of HbA1c to monitor glycemic status is based on normal hemoglobin and HbA composition. Thistest should not be used in patients with abnormal hemoglobin that affects the half life of the red blood cell or the in vivo glycation rates. 09/24/2017 12.5 (H) 4.0 - 6.4 % Final Comment: The use of HbA1c to monitor glycemic status is based on normal hemoglobin and HbA composition. This test should not be used in patients with abnormal hemoglobin that affects the half life of the red blood cell or the in vivo glycation rates. 09/20/2017 12.1 (H) 4.0 - 6.4 % Final Comment: The use of HbA1c to monitor glycemic status is based on normal hemoglobin and HbA composition. This test should not be used in patients with abnormal hemoglobin that affects the half life of the red blood cell or the in vivo glycation rates. Please approve if appropriate. Thanks, Terry Beaver Pharm.D. Clinical Pharmacist [facility] [phone] 01/12/2024, 3:40 PM Did you pend patient's preferred pharmacy and medication before forwarding?yes Pharmacy: [facility] [address] [place] [address] Pending Prescriptions: Disp Refills metFORMIN HCl ER 500 MG Oral Tablet Exten*60 Tab*2 Sig: Take 1 Tablet by mouth 2 times a day with morning and evening meals. NovoLOG FlexPen 100 UNIT/ML Subcutaneous *9 mL 2 Sig: INJECT 6 UNITS UNDER THE SKIN IN THE MORNING AND 6 UNITS AT NOON AND 6 UNITS IN THE EVENING WITH MEALS SEE SLIDING SCALE WELL Refused Prescriptions: Disp Refills FreeStyle Jose Martin 2 Sensor 2 Each 12 Sig: Use as directed. Change sensor every 14 days. E11.9 Refused By: TERRY BEAVER Reason for Refusal: Refill Not Appropriate Reason for Refusal Comment: gets via DME per medicare Last Visit: 08/10/2023 (in office), Visit date not found (telemedicine) Next Visit: 02/08/2024 If no future appointments scheduled, and last appointment is greater than a year ago, please schedule patient for a follow-up appointment Last date the medication was ordered: 09/01/2023 Is this request for a controlled substance?No Urine Drug Screen: Results for orders placed or performed during the hospital encounter of 12/28/22 TOXICOLOGY, URINE SCREEN W/ CONFIRMATION Result Value Amphetamines Screen, U Negative Benzodiazepines Screen, U Negative Cannabinoids Screen, U Negative Cocaine Metabolite Screen, U Negative Fentanyl Screen, U Positive (A) Hydrocodone Screen, U Negative Methadone Metabolite Screen, U Negative Morphine/Codeine Screen, U Negative Oxycodone Screen, U Negative Narrative Cutoff Concentrations: Drug Level Amphetamines 500 ng/mL Benzodiazepines 100 ng/mL Cannabinoids 50 ng/mL Cocaine Metabolite 150 ng/mL Fentanyl 1 ng/mL Hydrocodone / Hydromorphone 300 ng/mL Methadone Metabolite 100 ng/mL Morphine / Codeine 300 ng/mL Oxycodone / Oxymorphone 100 ng/mL Screening results are presumptive and can only be used for medical purposes. Positive screening results are reflexed to confirmatory testing. Patient Phone Numbers Labs: Lab Results Component Value Date/Time CREAT 0.5 01/01/2023 08:10 AM CREAT 0.6 09/24/2017 07:49 AM POTASSIUM 4.2 01/01/2023 08:10 AM POTASSIUM 4.2 09/24/2017 07:49 AM TSH 1.71 01/11/2023 02:37 PM TSH 1.80 09/20/2017 04:51 PM LDLCALC 125 01/11/2023 02:37 PM LDLCALC 186 (H) 09/24/2017 07:49 AM LDLDIRECT NOT APPLICABLE 09/24/2017 07:49 AM ALT 20 01/11/2023 02:37 PM ALT 22 09/24/2017 07:49 AM HGBA1C 12.4 (H) 12/29/2022 06:29 AM HGBA1C 12.5 (H) 09/24/2017 07:49 AM documented in this encounter Plan of Treatment Upcoming Encounters Date Type Department Care Team (Late st Contact Info) Description 02/08/2024 2:00 PM EDT [facility] [place] [address] [facility] [place] [address] Mago Gutierrez PA-C [address] [facility] [place] [address] Health Maintenance Due Date Last Done Comments DXA Scan 1950 B-12 1968 Hepatitis C Screening 1968 Zoster Vaccines (1 of 2) 1998 COVID-19 Vaccine ( season) 2023 HbA1c 07/01/2023 12/29/2022, 09/09, 09/20/2017 GFR 07/04/2023 01/01/2023, 12/08, 12/30/2022, Additional history exists CKD HGB USE SMARTSET 52637 01/02/202401/01, 12/31/2022, 12/30/2022, Additional history exists CKD PHOS USE SMARTSET 04066 01/02/2024 05/2 01/2023, 12/31/2022, 12/30/2022, Additional history exists Albumin/Creatinine Ratio 01/12/2024 01/11/2023 Influenza Vaccine (FLU shot) (Season Ended) 2024 Depression Screening 08/10/2024 08/10/2023 Diabetic Eye [...] filedocumented as of this encounter Advance Directives * Full Code (Latest Code Status on File) Date Activated Date Inactivated Comments 12/28/2022 8:27 PM 01/01/2023 6:47 PM Question Answer Comments Discussion of Advance Direct mckayla occurred with: Not Discussed due to patient's condition Does the patient have a Living Will? No Does the patient have Health Care Power of De Icer Kit Assembler? No Care Teams Mixer Helper Relationship Specialty Start Date End Date Matt Mago DEVYN [place] [address] [place], [place] [address] PCP - General Physician Green Chain Puller 04/05/23 documented as of this encounter
--- OUTSIDE RECORDS SUMMARY | 2024-03-02 21:25 | External Medical Summary | Summary of Care ---
Author Name Unknown Organization [facility] Address [address] [facility] [place] [address] Phone [phone] Care Team Providers Care Financial Accounting Manager Name Role Phone Mago Gutierrez DEVYN Primary Care Provider [phone] Encounter Details Date Type Department Care Team (Late st Contact Info) Description 02/15/2024 Orders Only PATIENT PORTAL DO NOT DELETE THIS DEPT USED BY [place] [address] Allergies No known active allergiesdocumented as of this encounter (statuses as of 02/15/2024) Medications Medication Sig Dispensed Refills Start Date [...] 200 Strip 01/01/2023 Active OneTouch Delica Plus [id number] Use as directed. 200 Each 01/01/2023 Active [...] 14 days. E11.9 6 Each 02/08/2024 Active documented as of this encounter (statuses as of 02/15/2024) Active Problems Problem Noted Date Diagnosed Date [...] as of this encounter (statuses as of 02/15/2024) Resolved Problems Problem Noted Date Diagnosed Date Resolved Date Migraine without status migr ainosus, not intractable 02/03/2023 08/10/2023 Compression fracture of L2 lumbar vertebra 01/01/2023 08/10/2023 Menopause 06/02/2004 09/20/2017 Hypothyroidism 06/02/2004 08/10/2023 Migraine 09/06/2017 documented as of this encounter (statuses as of 02/15/2024) Immunizations Name Administration Dates Next Due Pneumococcal Conjugate Vacc, 13 Valent (Prevnar) 11/04/2017 Pneumococcal Conjugate Vacci ne, 20-valent ([id number]) 08/10/2023 TD, Preservative Free 11/04/2017, 018(Deferred: Patient [...] 08/10/2023 Does the household have a re gular source of income? (Household - for ages [...] as of this encounter Plan of Treatment Health Maintenance Due Date Last Done Comments DXA Scan 1950 B-12 1968 Hepatitis C Screening 1968 Zoster Vaccines (1 of 2) 1998 COVID-19 Vaccine ( season) 2023 HbA1c 07/01/2023 12/29/2022, 09/09, 09/20/2017 GFR 07/04/2023 01/01/2023, 12/08, 12/30/2022, Additional history exists CKD HGB USE SMARTSET 16741 01/02/202401/01, 12/31/2022, 12/30/2022, Additional history exists CKD PHOS USE SMARTSET 06219 01/02/202412/08, 12/31/2022, 12/30/2022, Additional history exists Albumin/Creatinine [...] the patient have Health Care Power of Systems Support Officer? No Care Teams Financial Accounting Manager Relationship Specialty Start Date End Date Matt Mago DEVYN [place] [address] [facility] [place] [address] PCP - General Physician Client Support Manager 04/05/23 documented as of this encounter
--- OUTSIDE RECORDS SUMMARY | 2024-03-02 21:25 | External Medical Summary | Summary of Care ---
Author Name Unknown Organization [facility] Address [address] [place] [address] Phone [phone] Care Team Providers Care Front Facer Name Role Phone Mago Gutierrez PA-C Primary Care Provider [phone] Reason for Visit * Reason Onset Date Comments Medication Refill 12/18/2023 Encounter Details Date Type Department Care Team (Late st Contact Info) Description 12/18/2023 Refill Family Practice [facility] [place] [address] [facility] [place] [address] Mago Gutierrez PA-C [address] [facility] [place] [address] Allergies No known active allergiesdocumented as of this encounter (statuses as of 12/20/2023) Medications Medication Sig Dispensed Refills Start Date [...] Strip 0 01/01/2023 Active OneTouch Delica Plus [id number] Use as directed. 200 Each 0 01/01/2023 [...] SCALE WELL 9 mL 2 09/01/2023 Active FreeStyle Jose Martin 2 Sensor Use as directed. Change sensor every 14 days. E11.9 2 Each 12 11/25/2023 Active documented as of this encounter (statuses as of 12/20/2023) Active Problems Problem Noted Date Diagnosed Date [...] as of this encounter (statuses as of 12/20/2023) Resolved Problems Problem Noted Date Diagnosed Date Resolved Date Migraine without status migr ainosus, not intractable 02/03/2023 08/10/2023 Compression fracture of L2 lumbar vertebra 01/01/2023 08/10/2023 Menopause 06/02/2004 09/20/2017 Hypothyroidism 06/02/2004 08/10/2023 Migraine 09/06/2017 documented as of this encounter (statuses as of 12/20/2023) Immunizations Name Administration Dates Next Due Pneumococcal Conjugate Vacc, 13 Valent (Prevnar) 11/04/2017 Pneumococcal Conjugate Vacci ne, 20-valent ([id number]) 08/10/2023 TD, Preservative Free 11/04/2017, 018(Deferred: Patient [...] encounter Miscellaneous Notes * Telephone Encounter - Tiffany Bhatia [facility] - 12/20/2023 1:56 PM EDTRefused Prescriptions: Disp Refills FreeStyle Jose Martin 2 Sensor 2 Each 12 Sig: Use as directed. Change sensor every 14 days. E11.9Refused By: TIFFANY BHATIA for Refusal: Too soon documented in this encounter Plan of Treatment Upcoming Encounters Date Type Department Care Team (Late st Contact Info) Description 02/08/2024 2:00 PM EDT Office Visit Family Practice [facility] [address] [facility] [place] [address] Mago Gutierrez PA-C [address] [place] [address] Health Maintenance Due Date Last Done Comments DXA Scan 1950 B-12 1968 Hepatitis C Screening 1968 Zoster Vaccines (1 of 2) 1998 COVID-19 Vaccine (2022- season) 2023 HbA1c 07/01/2023 12/29/2022, 09/09, 09/20/2017 GFR 07/04/2023 01/01/2023, 12/08, 12/30/2022, Additional history exists CKD HGB USE SMARTSET 98268 01/02/202401/01, 12/31/2022, 12/30/2022, Additional history exists CKD PHOS USE SMARTSET 93825 01/02/202412/08, 12/31/2022, 12/30/2022, Additional history exists Albumin/Creatinine [...] the patient have Health Care Power of Signs And Displays Sales Representative? No Care Teams Front Facer Relationship Specialty Start Date End Date Matt Mago DEVYN [place] [address] [place] [address] PCP - General Physician Asphalt Dauber 04/05/23 documented as of this encounter
--- OUTSIDE RECORDS SUMMARY | 2024-03-02 21:25 | External Medical Summary | Summary of Care ---
Author Name Unknown Organization [facility] Address [address] [place] [address] Phone [phone] Care Team Providers Care Veterinary Receptionist Name Role Phone Mago Gutierrez PA-C Primary Care Provider [phone] Reason for Visit * Reason Onset Date Comments Medication Refill 11/24/2023 Encounter Details Date Type Department Care Team (Late st Contact Info) Description 11/24/2023 Refill Family Practice [facility] [place] [address] [facility] [place] [address] Mago Gutierrez PA-C [address] [facility] [place] [address] Allergies No known active allergiesdocumented as of this encounter (statuses as of 11/25/2023) Medications Medication Sig Dispensed Refills Start Date [...] Strip 0 01/01/2023 Active OneTouch Delica Plus [id number] Use as directed. 200 Each 0 01/01/2023 [...] days. E11.9 2 Each 12 11/25/2023 Active FreeStyle Jose Martin 2 Sensor Use as directed. Change sensor every 14 days. E11.9 2 Each 12 08/10/2023 Discontinue d(Refill) documented as of this encounter (statuses as of 11/25/2023) Active Problems Problem Noted Date Diagnosed Date [...] as of this encounter (statuses as of 11/25/2023) Resolved Problems Problem Noted Date Diagnosed Date Resolved Date Migraine without status migr ainosus, not intractable 02/03/2023 08/10/2023 Compression fracture of L2 lumbar vertebra 01/01/2023 08/10/2023 Menopause 06/02/2004 09/20/2017 Hypothyroidism 06/02/2004 08/10/2023 Migraine 09/06/2017 documented as of this encounter (statuses as of 11/25/2023) Immunizations Name Administration Dates Next Due Pneumococcal Conjugate Vacc, 13 Valent (Prevnar) 11/04/2017 Pneumococcal Conjugate Vacci ne, 20-valent ([id number]) 08/10/2023 TD, Preservative Free 11/04/2017, 018(Deferred: Patient [...] encounter Miscellaneous Notes * Telephone Encounter - Damian Malhotra [facility] - 11/25/2023 11:24 AM EDTSigned Prescriptions: Disp Refills FreeStyle Jose Martin 2 Sensor 2 Each 12 Sig: Use as directed. Change sensor every 14 days. E11.9Authorizing Provider: MAGO GUTIERREZ AOrerick User: DAMIAN POLLACK------- documented in this encounter Plan of Treatment Upcoming Encounters Date Type Department Care Team (Late st Contact Info) Description 02/08/2024 2:00 PM EDT Office Visit Family Practice [facility] [address] [place] [address] Mago Gutierrez PA-C [address] [facility] [place] [address] Health Maintenance Due Date Last Done Comments DXA Scan 1950 B-12 1968 Hepatitis C Screening 1968 Zoster Vaccines (1 of 2) 1998 COVID-19 Vaccine ( - 2022- season) 2023 HbA1c 07/01/2023 12/29/2022, 09/09, 09/20/2017 GFR 07/04/2023 01/01/2023, 12/08, 12/30/2022, Additional history exists CKD HGB USE SMARTSET 42188 01/02/202401/01, 12/31/2022, 12/30/2022, Additional history exists CKD PHOS USE SMARTSET 11556 01/02/202412/08, 12/31/2022, 12/30/2022, Additional history exists Albumin/Creatinine [...] the patient have Health Care Power of Risk Manager? No Care Teams Veterinary Receptionist Relationship Specialty Start Date End Date MattNovember DEVYN [place] [address] [place] [address] PCP - General Physician Revenue Specialist 04/05/23 documented as of this encounter
--- OUTSIDE RECORDS SUMMARY | 2024-03-02 21:25 | External Medical Summary | Summary of Care ---
Author Name Unknown Organization [facility] Address [address] [place] [address] Phone [phone] Care Team Providers Care Interactive Account Manager Name Role Phone Mago Gutierrez PA-C Primary Care Provider [phone] Reason for Visit * Reason Onset Date Comments Scan To Read 08/10/2023 Encounter Details Date Type Department Care Team (Late st Contact Info) Description 08/10/2023 [facility] [place] [address] [facility] [place] [address] Mago Gutierrez PA-C [address] [facility] [place] [address] Scan To Read Allergies No known active allergiesdocumented as of this encounter (statuses as of 11/09/2023) Medications Medication Sig Dispensed Refills Start Date [...] Strip 0 01/01/2023 Active OneTouch Delica Plus [id number] Use as directed. 200 Each 0 01/01/2023 [...] days. E11.9 2 Each 12 08/10/2023 Active documented as of this encounter (statuses as of 11/09/2023) Active Problems Problem Noted Date Diagnosed Date [...] as of this encounter (statuses as of 11/09/2023) Resolved Problems Problem Noted Date Diagnosed Date Resolved Date Migraine without status migr ainosus, not intractable 02/03/2023 08/10/2023 Compression fracture of L2 lumbar vertebra 01/01/2023 08/10/2023 Menopause 06/02/2004 09/20/2017 Hypothyroidism 06/02/2004 08/10/2023 Migraine 09/06/2017 documented as of this encounter (statuses as of 11/09/2023) Immunizations Name Administration Dates Next Due Pneumococcal Conjugate Vacc, 13 Valent (Prevnar) 11/04/2017 Pneumococcal Conjugate Vacci ne, 20-valent ([id number]) 08/10/2023 TD, Preservative Free 11/04/2017, 018(Deferred: Patient [...] encounter Miscellaneous Notes * Telephone Encounter - Jenny Laguerre RN - 08/17/2023 3:51 PM EST Left message for pt to call back. * Telephone Encounter - Mago Gutierrze PA-C - 08/10/2023 7:15 PM EST Please inform patient images were not able to be read. * Telephone Encounter - Evaristo Arevalo MD - 08/10/2023 4:03 PM EST Retinal Scan Imaging [place] [id number] Retinal Scan Interpretation: The images are not able to be interpreted. Diabetes Retinal Imaging Care Plan: The retinal scan results are uninterpretable - I will forward this encounter to the Ophthalmology DM Letter Pool [[id number]], they will send an unreadable retinal scan letter to the patient. I will forward this encounter to the ordering provider. Patient prefers to be seen at [facility] for follow-up evaluation. This encounter will be sent to the ordering provider for them to arrange thepatient to be scheduled within 3 months. Evaristo Arevalo MD 08/10/2023 4:04 PM * Telephone Encounter - Viktoriya Irizarry LPN - 08/10/2023 3:09 PM EST A Diabetic Telemed Eye image was taken and requires your interpretation for Mago Gutierrez. Please check your inbasket for image. Patient prefers to be seen at [facility] if a follow-up appointment isneeded. documented in this encounter Plan of Treatment Upcoming Encounters Date Type Department Care Team (Late st Contact Info) Description 02/08/2024 2:00 PM EDT Office Visit [facility] [place] [address] [place] [address] Mago Gutierrez PA-C [address] [place] [address] Health Maintenance Due Date Last Done Comments DXA Scan 1950 B-12 1968 Hepatitis C Screening 1966 Zoster Vaccines (1 of 2) 1998 COVID-19 Vaccine ( - 2022- season) 2023 Influenza Vaccine (FLU shot) (#1) 2023 HbA1c 07/01/2023 12/29/2022, 09/09, 09/20/2017 GFR 07/04/2023 01/01/2023, 12/08, 12/30/2022, Additional history exists CKD HGB USE SMARTSET 66996 01/02/202401/01, 12/31/2022, 12/30/2022, Additional history exists CKD PHOS USE SMARTSET 80934 01/02/202412/08, 12/31/2022, 12/30/2022, Additional history exists Albumin/Creatinine [...] the patient have Health Care Power of Teaching Associate? No Care Teams Interactive Account Manager Relationship Specialty Start Date End Date Matt Mago [place], [place] [address] [place], [place] [address] [address] PCP - General Physician Cutter Brake Lining 04/05/23 documented as of this encounter
--- OUTSIDE RECORDS SUMMARY | 2024-03-02 21:26 | External Medical Summary | Summary of Care ---
Author Name Unknown Organization [facility] Address [address] [place] [address] Phone [phone] Care Team Providers Care Highway Research Engineer Name Role Phone Mago Gutierrez PA-C Primary Care Provider [phone] Reason for Visit * Reason Onset Date Comments Information 09/16/2023 DM eye Encounter Details Date Type Department Care Team (Late st Contact Info) Description 09/16[facility]23 [facility] [address] [facility] [place] [address] Mago Gutierrez PA-C [address] [facility] [place] [address] Information (DM eye) Allergies No known active allergiesdocumented as of this encounter (statuses as of 09/16/2023) Medications Medication Sig Dispensed Refills Start Date [...] Strip 0 01/01/2023 Active OneTouch Delica Plus [id number] Use as directed. 200 Each 0 01/01/2023 [...] as of this encounter (statuses as of 09/16/2023) Active Problems Problem Noted Date Diagnosed Date [...] as of this encounter (statuses as of 09/16/2023) Resolved Problems Problem Noted Date Diagnosed Date Resolved Date Migraine without status migr ainosus, not intractable 02/03/2023 08/10/2023 Compression fracture of L2 lumbar vertebra 01/01/2023 08/10/2023 Menopause 06/02/2004 09/20/2017 Hypothyroidism 06/02/2004 08/10/2023 Migraine 09/06/2017 documented as of this encounter (statuses as of 09/16/2023) Immunizations Name Administration Dates Next Due Pneumococcal Conjugate Vacc, 13 Valent (Prevnar) 11/04/2017 Pneumococcal Conjugate Vacci ne, 20-valent ([id number]) 08/10/2023 TD, Preservative Free 11/04/2017, 018(Deferred: Patient [...] encounter Miscellaneous Notes * Telephone Encounter - Cristal Nichols LPN - 09/16/2023 3:38 PM EST Patient with a positive Diabetic Retinopathy scan. The images are not able to be interpreted. Outreach action taken: [employer] message sent Cristal Nichols LPN documented in this encounter Plan of Treatment Upcoming Encounters Date Type Department Care Team (Late st Contact Info) Description 02/08/2024 2:00 PM EDT Office Visit [facility] [address] [facility] [place] [address] Mago Gutierrez PA-C [address] [facility] [place] [address] Health Maintenance Due Date Last Done Comments DXA Scan 1950 COVID-19 Vaccine (#1) 1950 B-12 1966 Hepatitis C Screening 1966 Zoster Vaccines (1 of 2) 1998 Hepatitis B (1 of 3 - Risk 3-dose series) 2008 Influenza Vaccine (FLU shot) (#1) 2023 HbA1c 07/01/2023 12/29/2022, 09/09, 09/20/2017 GFR 07/04/2023 01/01/2023, 12/08, 12/30/2022, Additional history exists CKD HGB USE SMARTSET 60691 01/02/202401/01, 12/31/2022, 12/30/2022, Additional history exists CKD PHOS USE SMARTSET 11534 01/02/202412/08, 12/31/2022, 12/30/2022, Additional history exists Albumin/Creatinine [...] the patient have Health Care Power of Elevator Erector? No Care Teams Highway Research Engineer Relationship Specialty Start Date End Date Matt November DEVYN Perry [address] [place] [address] PCP - General Physician Interlocking Installer 04/05/23 documented as of this encounter
--- OUTSIDE RECORDS SUMMARY | 2024-03-02 21:26 | External Medical Summary | Summary of Care ---
Author Name Unknown Organization [facility] Address [address] [place] [address] Phone [phone] Care Team Providers Care Welding Machine Operator Resistance Name Role Phone Mago Gutierrez PA-C Primary Care Provider [phone] Reason for Visit * Reason Onset Date Comments Medication Refill 10/05/2023 Encounter Details Date Type Department Care Team (Late st Contact Info) Description 10/05/2023 Refill Family Practice [facility] [place] [address] [facility] [place] [address] Mago Gutierrez PA-C [address] [facility] [place] [address] Allergies No known active allergiesdocumented as of this encounter (statuses as of 10/06/2023) Medications Medication Sig Dispensed Refills Start Date [...] Strip 0 01/01/2023 Active OneTouch Delica Plus [id number] Use as directed. 200 Each 0 01/01/2023 [...] as of this encounter (statuses as of 10/06/2023) Active Problems Problem Noted Date Diagnosed Date [...] as of this encounter (statuses as of 10/06/2023) Resolved Problems Problem Noted Date Diagnosed Date Resolved Date Migraine without status migr ainosus, not intractable 02/03/2023 08/10/2023 Compression fracture of L2 lumbar vertebra 01/01/2023 08/10/2023 Menopause 06/02/2004 09/20/2017 Hypothyroidism 06/02/2004 08/10/2023 Migraine 09/06/2017 documented as of this encounter (statuses as of 10/06/2023) Immunizations Name Administration Dates Next Due Pneumococcal Conjugate Vacc, 13 Valent (Prevnar) 11/04/2017 Pneumococcal Conjugate Vacci ne, 20-valent ([id number]) 08/10/2023 TD, Preservative Free 11/04/2017, 018(Deferred: Patient [...] encounter Miscellaneous Notes * Telephone Encounter - Nathen Alberto [facility] - 10/06/2023 11:43 AM EST Refused Prescriptions: Disp Refills FreeStyle Jose Martin 2 Sensor 2 Each 12 Sig: Use as directed. Change sensor every 14 days. E11.9Refused By: NATHEN ALBERTOason for Refusal: Too soon documented in this encounter Plan of Treatment Upcoming Encounters Date Type Department Care Team (Late st Contact Info) Description 02/08/2024 2:00 PM EDT Office Visit Family [facility] [address] [facility] [place] [address] Mago Gutierrez PA-C [address] [facility] [place] [address] Health Maintenance Due Date Last Done Comments DXA Scan 1950 B-12 1968 Hepatitis C Screening 1966 Zoster Vaccines (1 of 2) 1998 COVID-19 Vaccine ( - 2022- season) 2023 Influenza Vaccine (FLU shot) (#1) 2023 HbA1c 07/01/2023 12/29/2022, 09/09, 09/20/2017 GFR 07/04/2023 01/01/2023, 12/08, 12/30/2022, Additional history exists CKD HGB USE SMARTSET 62683 01/02/202401/01, 12/31/2022, 12/30/2022, Additional history exists CKD PHOS USE SMARTSET 07204 01/02/2024 05/2 01/2023, 12/31/2022, 12/30/2022, Additional history [...] the patient have Health Care Power of Blasting Coal Miner? No Care Teams Welding Machine Operator Resistance Relationship Specialty Start Date End Date Mago Gutierrez PA-C [address] [place], [place] [address] PCP - General Physician Wildlife Ecologist 04/05/23 documented as of this encounter
--- OUTSIDE RECORDS SUMMARY | 2024-03-02 21:26 | External Medical Summary | Summary of Care ---
Author Name Unknown Organization [facility] Address [address] [place] [address] Phone [phone] Care Team Providers Care Mill Crane Operator Name Role Phone Mago Gutierrez PA-C Primary Care Provider [phone] Reason for Visit * Reason Onset Date Comments Health Maintenance 09/07/2023 Encounter Details Date Type Department Care Team (Late st Contact Info) Description 09/07/2023 [facility] [address] [facility] [place] [address] Mago Gutierrez PA-C 200 [facility] [place] [address] Health Maintenance Allergies No known active allergiesdocumented as of this encounter (statuses as of 09/07/2023) Medications Medication Sig Dispensed Refills Start Date [...] Strip 0 01/01/2023 Active OneTouch Delica Plus [id number] Use as directed. 200 Each 0 01/01/2023 [...] as of this encounter (statuses as of 09/07/2023) Active Problems Problem Noted Date Diagnosed Date [...] as of this encounter (statuses as of 09/07/2023) Resolved Problems Problem Noted Date Diagnosed Date Resolved Date Migraine without status migr ainosus, not intractable 02/03/2023 08/10/2023 Compression fracture of L2 lumbar vertebra 01/01/2023 08/10/2023 Menopause 06/02/2004 09/20/2017 Hypothyroidism 06/02/2004 08/10/2023 Migraine 09/06/2017 documented as of this encounter (statuses as of 09/07/2023) Immunizations Name Administration Dates Next Due Pneumococcal Conjugate Vacc, 13 Valent (Prevnar) 11/04/2017 Pneumococcal Conjugate Vacci ne, 20-valent ([id number]) 08/10/2023 TD, Preservative Free 11/04/2017, 018(Deferred: Patient [...] encounter Miscellaneous Notes * Telephone Encounter - Shantal Rodriguez LPN - 09/07/2023 1:05 PM EST Care Gaps Comprehensive Care Outreach Last Office/Telemedicine Visit: 08/10/2023 (in office), Visit date not found (telemedicine) Next Office Visit: 02/08/2024 Hemoglobin AIC Results: Lab Results Component Value Date/Time HEMOGLOBIN A1C - [facility] 12.4 (H) 12/29/2022 06:29 AM HEMOGLOBIN A1C - [facility] 12.5 (H) 09/24/2017 07:49 AM HEMOGLOBIN A1C - [facility] 12.1 (H) 09/20/2017 04:51 PM BP Readings from Last 1 Encounters: 08/10/23 150/84 Reviewed Health Maintenance below: Health Maintenance Topic Date Due DXA Scan Never done COVID-19 Vaccine (1) Never done Hepatitis C Screening Never done B-12 Never done Zoster Vaccines (1 of 2) Never done Hepatitis B (1 of 3 - Risk 3-dose series) Never done Influenza Vaccine (FLU shot) (1) Never done HbA1c 07/01/2023 GFR 07/04/2023 CKD HGB USE SMARTSET 25422 01/02/2024 CKD PHOS USE SMARTSET 76802 01/02/2024 Albumin/Creatinine Ratio 01/12/2024 Labs already ordered Dexa letter sent to her in may Care Gap Outreach Action Taken: Outreach not indicated documented in this encounter Plan of Treatment Upcoming Encounters Date Type Department Care Team (Late st Contact Info) Description 02/08/2024 2:00 PM EDT Office Visit [facility] [address] [place] [address] Mago Gutierrez PA-C [address] [place] [address] Health Maintenance Due Date Last Done Comments DXA Scan 1950 COVID-19 Vaccine (#1) 1950 B-12 1966 Hepatitis C Screening 1966 Zoster Vaccines (1 of 2) 1998 Hepatitis B (1 of 3 - Risk 3-dose series) 2008 Influenza Vaccine (FLU shot) (#1) 2023 HbA1c 07/01/2023 12/29/2022, 09/09, 09/20/2017 GFR 07/04/2023 01/01/2023, 12/08, 12/30/2022, Additional history exists CKD HGB USE SMARTSET 15789 01/02/202401/01, 12/31/2022, 12/30/2022, Additional history exists CKD PHOS USE SMARTSET 79196 01/02/202412/08, 12/31/2022, 12/30/2022, Additional history exists Albumin/Creatinine [...] the patient have Health Care Power of Cytogeneticist? No Care Teams Mill Crane Operator Relationship Specialty Start Date End Date Mago Gutierrez PA-C [address] [place], [place] [address] PCP - General Physician Rotary Kiln Operator 04/05/23 documented as of this encounter
[2024-03-03 03:49] LABS: BUN Creatinine Ratio 32.9 (10-20); Calcium 8.8 mg/dl (8.6-10.3); Chol HDL Ratio 4.7 (0-5); Creatinine Clr Calc Pharmacy 61.2 ml/min; Est GFR (African American) 84.9 ml/min; Est GFR (Non-African American) 73.2 ml/min; Magnesium 1.7 mg/dl (1.7-2.4); Potassium 3.4 mmol/L (3.5-5.1)
[2024-03-03 04:08] LABS: Ferritin 61.6 ng/ml (8-388)
[2024-03-03 07:24] LABS: Estimated Average Glucose 174 mg/dl; Hemoglobin A1C 7.7 % (4.5-5.6)
[2024-03-03] MEDS: POTASSIUM CHLORIDE CRTAB 20 MEQ TABCR PO STA (09:31)
[2024-03-03] MEDS: METOPROLOL SUCC 25MG EXT REL TAB PO SCH (09:31)
--- NOTE | 2024-03-03 10:19 | Hospitalist Progress Note ---
Date of Service March 03, 2024 Assessment & Plan (1) New onset of congestive heart failure: (2) CKD (chronic kidney disease) stage 3, GFR 30-59 ml/min: (3) Type 2 diabetes mellitus: Plan This is a 73 y/o female with uncontrolled DM2, CKD3, and other history as outlined below who presents to the ED today with worsening shortness of breath. She notes worsening LE edema over the last few weeks and now shortness of breath, which is also worsening. Acute on chronic heart failure with reduced ejection fraction and diastolic dysfunction Pt presenting with SOB and edema BNP of 1071 Chest XRAY noting cardiomegaly and layering pleural effusions R>L Consider CT chest to further define ECHO with EF 30-35%, mod- severe MR, mod aortic sclerosis w/o aortic stenosis, moderate L and R pleural effusions, trivial loculated R lateral pericardial effusion Continue IV Lasix 40mg BID Lisinopril, Toprol initiated Daily weights, follow Is and Os Cardiology consulted, appreciate recs Complicated UTI UA suggestive of infection Urine culture currently growing gram neg rods On Rocephin Abdominal Pain Pt with abdominal pain complaints KUB ordered Consider CT abd/pelvis if persistent IV antiemetics, prn bowel regimen, prn bentyl Continue to monitor Hypokalemia replete as needed Erythrocytosis Continue to monitor Type 2 diabetes mellitus: Outpatient chart reviewed - last saw endocrinology in January 2023, missed appt with glycemic pharmacy clinic so PCP has been prescribing medications although it is unclear how compliant pt is with regimen hgba1c of 7.7 Basal insulin with Novolog sliding scale Diabetic diet, BSG ACHS PCP followup CKD (chronic kidney disease) stage 3, GFR 30-59 ml/min Cr currently normal Unclear what pt's baseline is Monitor BMP with diuresis Diet: HH/DMII Code status: Full code DVT prophylaxis: subQ heparin Dispo: PT/OT ordered for further recs Admission and Anticipated Discharge Date Admission Date: March 02, 2024 Subjective pt was seen with nursing at bedside. Stated she was having abdominal pain, concerned she might be constipated. Review of Systems Review of Systems: All systems reviewed & are unremarkable except as noted in Subjective Physical Exam Physical Exam: General: Alert Psych: Appropriate mood and affect Neuro: hearing loss noted HEENT: NC/AT CV: RRR Resp: no increased effort of breathing Abdomen: Soft Extremities: edema in lower extremities bilaterally. Results & Data Results & Data Vital Signs (Past 12 Hours) Vital Signs Temp Pulse Pulse Resp BP Pulse Ox O2 Del Method 03/03/24 09:30 105 H 03/03/24 08:01 36.3 C L 97 H 19 135/74 94 Room Air 03/03/24 07:50 101 H 03/03/24 07:50 Room Air 03/03/24 03:30 36.6 C 94 H 18 124/72 95 Room Air 03/02/24 22:40 108 H 03/02/24 22:23 36.9 C 109 H 18 140/94 95 Room Air (2) CKD (chronic kidney disease) stage 3, GFR 30-59 ml/min Chronic kidney disease stage 3 subtype: unspecified whether 3a or 3b Qualified Code(s): N18.30 - Chronic kidney disease, stage 3 unspecified (3) Type 2 diabetes mellitus Diabetes mellitus termite helper insulin use: unspecified termite helper insulin use status
[2024-03-03] MEDS: cefTRIAXone SODIUM 2,000 MG/50 ML BAG IV SCH (10:53)
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
[2024-03-03] MEDS: ATORVASTATIN 20 MG TAB PO SCH (13:35)
[2024-03-03] MEDS: ASPIRIN 81 MG ECTAB PO SCH (13:35)
[2024-03-03] MEDS: MAGNESIUM OXIDE 400 MG TAB PO SCH (14:21)
[2024-03-03] MEDS ORDERED: POLYETHYLENE (MIRALAX) 17 GM PACK PO PRN (17:23)
[2024-03-03] MEDS ORDERED: DICYCLOMINE HCL 10 MG CAP PO PRN (17:24)
--- NOTE | 2024-03-03 19:23 | XRay Report ---
XR KUB/Abdomen 1 view CLINICAL HISTORY: r/o constipation, abd pain TECHNIQUE: 1 view of the abdomen was obtained. Comparison: None available at the time of this dictation. FINDINGS: Lung bases are unremarkable. Degenerative changes are seen in the visualized skeleton. The bowel gas pattern is nonobstructive. Small stool burden is seen. IMPRESSION: Small stool burden without evidence of fecal impaction. ACT 112: Negative or not required by law. Electronically signed by: Trey Suárez M.D. 03/03/2024 7:22 PM
--- NOTE | 2024-03-03 21:13 | Electrocardiogram Report ---
Test Reason : Blood Pressure : / mmHG Vent. Rate : 102 BPM Atrial Rate : 102 BPM P-R Int : 156 ms QRS Dur : 100 ms QT Int : 384 ms P-R-T Axes : 061 -09 064 degrees QTc Int : 500 ms Sinus tachycardia with occasional Premature ventricular complexes Low voltage QRS Nonspecific T wave abnormality Abnormal ECG When compared with ECG of 02-MAR-2024 14:47, Criteria for Septal infarct are no longer Present Confirmed by Praneeth Mohamud ([id number]) on 03/03/2024 9:13:19 PM Referred By: REFERRED SELF Confirmed By:Praneeth Mohamud
[2024-03-03] MEDS: DOCUSATE SODIUM 100 MG CAP PO SCH (21:28)
[2024-03-03] MEDS: POTASSIUM CHLORIDE CRTAB 20 MEQ TABCR PO SCH (21:30)
[2024-03-04] MEDS: ALBUMIN 25% 12.5 GM/50 ML VIAL IV ONE (02:15)
[2024-03-04] MEDS: MAGNESIUM SULFATE / D5W 1 GM/100 ML BAG IV SCH (02:15)
[2024-03-04] MEDS: POTASSIUM CHLORIDE CRTAB 20 MEQ TABCR PO STA (02:20)
[2024-03-04] MEDS: METOPROLOL TARTRATE 1 MG/ML VIAL IV STA (02:21)
[2024-03-04 06:51] LABS: Basophils # (auto) 0.01 K/uL (0.00-0.20); Basophils % (auto) 0.1 %; Eosinophils # (auto) 0.03 K/uL (0.00-0.50); Eosinophils % (auto) 0.3 %; Hematocrit (blood only) 51.1 % (37.0-47.0); Hemoglobin 16.5 g/dl (12.0-16.0); Immature Granulocytes # (auto) 0.07 K/uL (0.01-0.20); Immature Granulocytes % (auto) 0.6 %; Lymphocytes # (auto) 0.62 K/uL (1.20-3.40); Lymphocytes % (auto) 5.4 %; Mean Corpuscular Hemoglobin 27.3 pg (25.0-34.0); Mean Corpuscular Hgb Conc 32.3 g/dL (32.0-36.0); Mean Corpuscular Volume 84.5 fL (80.0-100.0); Monocytes # (auto) 1.43 K/uL (0.11-0.59); Monocytes % (auto) 12.5 %; Neutrophils # (auto) 9.26 K/uL (1.40-6.50); Neutrophils % (auto) 81.1 %; Platelet Count 118 K/uL (130-400); RDW Coefficient of Variation 15.2 % (11.5-14.5); RDW Standard Deviation 44.8 fL (36.4-46.3); Red Blood Count 6.05 M/uL (4.20-5.40); White Blood Count 11.42 K/ul (4.8-10.8)
[2024-03-04 06:58] LABS: BUN Creatinine Ratio 33.3 (10-20); Calcium 8.5 mg/dl (8.6-10.3); Creatinine Clr Calc Pharmacy 63.7 ml/min; Est GFR (African American) 94.9 ml/min; Est GFR (Non-African American) 81.9 ml/min; Magnesium 2.2 mg/dl (1.7-2.4); Phosphorus 3.7 mg/dl (2.5-4.9); Potassium 3.5 mmol/L (3.5-5.1)
--- NOTE | 2024-03-04 08:20 | Electrocardiogram Report ---
Test Reason : Blood Pressure : / mmHG Vent. Rate : 091 BPM Atrial Rate : 091 BPM P-R Int : 150 ms QRS Dur : 104 ms QT Int : 386 ms P-R-T Axes : 041 -24 088 degrees QTc Int : 474 ms Normal sinus rhythm Possible Left atrial enlargement Nonspecific T wave abnormality Abnormal ECG When compared with ECG of 03-MAR-2024 05:58, Premature ventricular complexes are no longer Present Confirmed by Atul Guzman ([id number]) on 03/04/2024 8:19:56 AM Referred By: REFERRED SELF Confirmed By:Atul Guzman
[2024-03-04] MEDS: SPIRONOLACTONE 12.5 MG TAB PO SCH (10:21)
[2024-03-04] MEDS: ERTAPENEM SODIUM 1,000 MG in SYRINGE 0 ML IV SCH (11:23)
--- NOTE | 2024-03-04 14:25 | Hospitalist Progress Note ---
Date of Service March 04, 2024 Assessment & Plan (1) New onset of congestive heart failure: (2) CKD (chronic kidney disease) stage 3, GFR 30-59 ml/min: (3) Type 2 diabetes mellitus: Plan This is a 73 y/o female with uncontrolled DM2, CKD3, and other history as outlined below who presents to the ED today with worsening shortness of breath. She notes worsening LE edema over the last few weeks and now shortness of breath, which is also worsening. Acute on chronic heart failure with reduced ejection fraction and diastolic dysfunction Pt presenting with SOB and edema BNP of 1071 Chest XRAY noting cardiomegaly and layering pleural effusions R>L Consider CT chest to further define ECHO with EF 30-35%, mod- severe MR, mod aortic sclerosis w/o aortic stenosis, moderate L and R pleural effusions, trivial loculated R lateral pericardial effusion Continue IV Lasix 40mg BID Lisinopril, Toprol initiated Daily weights, follow Is and Os Cardiology consulted, appreciate recs Complicated UTI UA suggestive of infection Urine culture grew ESBL E coli Rocephin switched to IV Ertapenem Abdominal Pain Pt with abdominal pain complaints KUB ordered-noted small amt of stool Consider CT abd/pelvis if persistent IV antiemetics, prn bowel regimen, prn bentyl Continue to monitor Hypokalemia replete as needed Erythrocytosis Continue to monitor Type 2 diabetes mellitus: Outpatient chart reviewed - last saw endocrinology in January 2023, missed appt with glycemic pharmacy clinic so PCP has been prescribing medications although it is unclear how compliant pt is with regimen hgba1c of 7.7 Basal insulin with Novolog sliding scale Diabetic diet, BSG ACHS PCP followup CKD (chronic kidney disease) stage 3, GFR 30-59 ml/min Cr currently normal Unclear what pt's baseline is Monitor BMP with diuresis Diet: HH/DMII Code status: Full code DVT prophylaxis: subQ heparin Dispo: PT/OT ordered for further recs Admission and Anticipated Discharge Date Admission Date: March 02, 2024 Subjective pt was seen laying in bed States abdominal pain improved today Though still no BM Attempted to call pt's son Jeff as requested at about 5:12pm. He did not answer at the number provided. Review of Systems Review of Systems: All systems reviewed & are unremarkable except as noted in Subjective Physical Exam Physical Exam: General: Alert Psych: Appropriate mood and affect Neuro: hearing loss noted HEENT: NC/AT CV: RRR Resp: no increased effort of breathing Abdomen: Soft, nontender on exam Extremities: edema in lower extremities bilaterally. Results & Data Results & Data Vital Signs (Past 12 Hours) Vital Signs Temp Pulse Resp BP Pulse Ox O2 Del Method 03/04/24 11:20 37.2 C 92 H 19 111/76 91 Room Air 03/04/24 07:22 36.8 C 96 H 19 119/88 90 Room Air 03/04/24 03:59 36.5 C 86 18 119/73 93 Room Air (2) CKD (chronic kidney disease) stage 3, GFR 30-59 ml/min Chronic kidney disease stage 3 subtype: unspecified whether 3a or 3b Qualified Code(s): N18.30 - Chronic kidney disease, stage 3 unspecified (3) Type 2 diabetes mellitus Diabetes mellitus termite exterminator helper insulin use: unspecified [facility] insulin use status
--- NOTE | 2024-03-04 18:12 | Cardiology Progress Note ---
Date of Service March 04, 2024 Assessment & Plan (1) Acute on chronic heart failure with reduced ejection fraction and diastolic dysfunction: (2) Pleural effusion: (3) LV dysfunction: (4) Sinus tachycardia: Plan Acute decompensated heart failure Cardiomyopathy EF 30 to 35% Moderate to severe mitral regurgitation Elevated troponin in the setting of heart failure demand supply ischemia Volume status is improving we will continue with Lasix 40 mg twice daily Rate is elevated increase metoprolol to 25 mg twice daily Needs ischemic evaluation evaluation once volume status is improved Optimize heart failure therapy Daily weights low-salt diet Admission and Anticipated Discharge Date Admission Date: March 02, 2024 Subjective Is feeling slightly better continues to have shortness of breath lower extremity edema is improving Review of Systems Review of Systems: Shortness of breath presently denies chest pain has lower extremity edema denies palpitations no dizziness or lightheadedness Results & Data Vital Signs (Past 12 Hours) Vital Signs Temp Pulse Pulse Resp BP BP Pulse Ox 03/04/24 17:57 129/83 03/04/24 15:56 99 H 03/04/24 15:21 37.0 C 67 18 98/66 L 91 03/04/24 11:20 37.2 C 92 H 19 111/76 91 03/04/24 08:00 93 H 03/04/24 07:22 36.8 C 96 H 19 119/88 90 O2 Del Method 03/04/24 17:57 03/04/24 15:56 03/04/24 15:21 Room Air 03/04/24 11:20 Room Air 03/04/24 08:00 03/04/24 07:22 Room Air Laboratory Results CBC 03/04/24 Range/Units 06:12 WBC 11.42 H (4.8-10.8) K/ul RBC 6.05 H (4.20-5.40) M/uL Hgb 16.5 H (12.0-16.0) g/dl Hct 51.1 H (37.0-47.0) % Plt Count 118 L (130-400) K/uL Neut # (Auto) 9.26 H (1.40-6.50) K/uL Lymph # (Auto) 0.62 L (1.20-3.40) K/uL [place] # (Auto) 1.43 H (0.11-0.59) K/uL Eos # (Auto) 0.03 (0.00-0.50) K/uL Baso # (Auto) 0.01 (0.00-0.20) K/uL Comprehensive Metabolic Panel 03/04/24 Range/Units 06:12 Sodium 145 (136-145) mmol/L Potassium 3.5 (3.5-5.1) mmol/L Chloride 101 (98-107) mmol/L Carbon Dioxide 37 H (21-32) mmol/L BUN 24 H (6-23) mg/dl Creatinine 0.72 (0.6-1.2) mg/dl Glucose 93 (70-99(Fasting)) mg/dl Calcium 8.5 L (8.6-10.3) mg/dl Intake and Output 03/04/24 03/04/24 03/04/24 06:59 14:59 22:59 Intake Total 300 / 1190 340 / 340 Output Total 400 / 3300 850 / 850 Balance -100 / -2110 -510 / -510 Intake: IV 200 / 250 Magnesium Sulfate / D5w 1 gm In 200 / 200 100 ml @ 50 mls/hr IV Q2H [facility] Rx#:[id number] Oral 100 / 940 340 / 340 Output: Urine Amount (Catheter) 400 / 3300 850 / 850 Fox/Indwelling 400 / 3300 850 / 850 Other: Weight 67.4 kg Weight Measurement Method Built in [facility] Medications Administered Current Inpatient Medications Acetaminophen (Acetaminophen 325 Mg Tab) 650 mg PO Q4H PRN PRN Reason: Pain or Fever Stop: 04/01/24 18:38 Aspirin (Aspirin 81 Mg Ectab) [facility] [place] Stop: 04/02/24 12:44 Last Admin: 03/04/24 09:34 Dose: 81 mg Atorvastatin Calcium (Atorvastatin 20 Mg Tab) 20 mg PO QAM [facility] Stop: 04/02/24 12:44 Last Admin: 03/04/24 09:34 Dose: 20 mg Dextrose (Dextrose 50% 50 Ml Syringe) 25 - 50 ml IV UD PRN; Protocol PRN Reason: Hypoglycemia Protocol Stop: 04/01/24 18:38 Dicyclomine HCl (Dicyclomine Hcl 10 Mg Cap) 10 mg PO Q8H PRN PRN Reason: abdominal cramping Stop: 04/02/24 17:29 Docusate Sodium (Docusate Sodium 100 Mg Cap) 100 mg PO BID [facility] Stop: 04/02/24 20:59 Last Admin: 03/04/24 09:34 Dose: 100 mg Furosemide (Furosemide 40 Mg/4 Ml Vial) 40 mg IV [id number] [facility] Stop: 04/01/24 18:38 Last Admin: 03/04/24 18:01 Dose: 40 mg Glucagon (Glucagon For Inj 1 Mg Vial) 1 mg SQ UD PRN; Protocol PRN Reason: Hypoglycemia Protocol Stop: 04/01/24 18:38 Glucose (Glucose 40% Gel 15 Gm Tube) 15 - 30 gm PO UD PRN; Protocol PRN Reason: Hypoglycemia Protocol Stop: 04/01/24 18:38 Glucose (Glucose 10 Tab/Tube) 4 - 8 tab PO UD PRN; Protocol PRN Reason: Hypoglycemia Treatment Stop: 04/01/24 18:38 Heparin Sodium (Porcine) (Heparin Sod 5,000 Unit/0.5 Ml Vial) 5,000 units SQ Q8 [facility] Stop: 04/01/24 21:59 Last Admin: 03/04/24 14:01 Dose: 5,000 units Ertapenem 1,000 mg/ Syringe 10 mls @ 2 mls/min IV Q24H [facility] Stop: 03/14/24 10:59 Last Admin: 03/04/24 11:23 Dose: 2 mls/min Insulin Aspart (Insulin Aspart Per Unit Charge) 0 units SC ACHS [facility] Stop: 04/01/24 18:38 Last Admin: 03/04/24 17:15 Dose: Not Given Insulin Glargine (Lantus Per Unit Charge) 5 units SQ BID [facility] Stop: 04/01/24 20:59 Last Admin: 03/04/24 09:45 Dose: 5 units Lisinopril (Lisinopril 2.5 Mg Tab) 2.5 mg PO QAM [facility] Stop: 04/01/24 18:38 Last Admin: 03/04/24 09:34 Dose: 2.5 mg Magnesium Oxide (Magnesium Oxide 400 Mg Tab) 400 mg PO QAM [facility] Stop: 04/02/24 13:59 Last Admin: 03/04/24 09:34 Dose: 400 mg Metoprolol Succinate (Metoprolol Succ 25mg Ext Rel Tab) 25 mg PO QAM [facility] Stop: 04/02/24 08:59 Last Admin: 03/04/24 09:34 Dose: 25 mg Miscellaneous (Carbohydrates For Hypoglycemia ) 15 - 30 gm PO UD PRN PRN Reason: Hypoglycemia Protocol Stop: 04/01/24 18:38 Ondansetron HCl (Ondansetron Inj 2 Mg/Ml 2 Ml Vial) 4 mg IV Q6H PRN PRN Reason: Nausea And Vomiting Stop: 04/02/24 17:25 Polyethylene Glycol (Polyethylene (Miralax) 17 Gm Pack) 17 gm PO DAILY PRN PRN Reason: Constipation Stop: 04/02/24 17:22 Potassium Chloride (Potassium Chloride Crtab 20 Meq Tabcr) 20 meq PO BID [facility] Stop: 04/02/24 20:59 Last Admin: 03/04/24 09:34 Dose: 20 meq Spironolactone (Spironolactone 12.5 Mg Tab) 12.5 mg PO DAILY [facility] Stop: 04/03/24 09:29 Last Admin: 03/04/24 10:21 Dose: 12.5 mg
[2024-03-04] MEDS: METOPROLOL SUCC 25MG EXT REL TAB PO SCH (20:26)
[2024-03-05 06:52] LABS: Basophils # (auto) 0.01 K/uL (0.00-0.20); Basophils % (auto) 0.1 %; Hematocrit (blood only) 46.5 % (37.0-47.0); Hemoglobin 15.1 g/dl (12.0-16.0); Immature Granulocytes % (auto) 0.8 %; Lymphocytes # (auto) 0.58 K/uL (1.20-3.40); Lymphocytes % (auto) 4.4 %; Mean Corpuscular Hemoglobin 27.3 pg (25.0-34.0); Mean Corpuscular Hgb Conc 32.5 g/dL (32.0-36.0); Mean Corpuscular Volume 83.9 fL (80.0-100.0); Mean Platelet Volume 12.7 fL (9.4-12.4); Monocytes # (auto) 1.55 K/uL (0.11-0.59); Monocytes % (auto) 11.8 %; Neutrophils # (auto) 10.88 K/uL (1.40-6.50); Neutrophils % (auto) 82.9 %; Platelet Count 129 K/uL (130-400); RDW Coefficient of Variation 14.9 % (11.5-14.5); Red Blood Count 5.54 M/uL (4.20-5.40); White Blood Count 13.12 K/ul (4.8-10.8)
[2024-03-05 07:29] LABS: BUN Creatinine Ratio 35.2 (10-20); Creatinine Clr Calc Pharmacy 64.6 ml/min; Est GFR (African American) 96.6 ml/min; Est GFR (Non-African American) 83.3 ml/min; Magnesium 1.8 mg/dl (1.7-2.4); Phosphorus 2.9 mg/dl (2.5-4.9); Potassium 3.3 mmol/L (3.5-5.1)
[2024-03-05] MEDS: ONDANSETRON INJ 2 MG/ML 2 ML VIAL IV PRN (09:23)
[2024-03-05] MEDS: LANTUS PER UNIT CHARGE SQ SCH (09:23)
[2024-03-05] MEDS: POTASSIUM CHLORIDE CRTAB 20 MEQ TABCR PO STA (12:18)
--- NOTE | 2024-03-05 14:24 | Hospitalist Progress Note ---
Date of Service March 05, 2024 Assessment & Plan (1) New onset of congestive heart failure: (2) CKD (chronic kidney disease) stage 3, GFR 30-59 ml/min: (3) Type 2 diabetes mellitus: Plan This is a 73 y/o female with uncontrolled DM2, CKD3, and other history as outlined below who presents to the ED today with worsening shortness of breath. She notes worsening LE edema over the last few weeks and now shortness of breath, which is also worsening. Acute on chronic heart failure with reduced ejection fraction and diastolic dysfunction Pt presenting with SOB and edema BNP of 1071 Chest XRAY noting cardiomegaly and layering pleural effusions R>L Consider CT chest to further define ECHO with EF 30-35%, mod- severe MR, mod aortic sclerosis w/o aortic stenosis, moderate L and R pleural effusions, trivial loculated R lateral pericardial effusion Continue IV Lasix 40mg BID, spironolactone Lisinopril, Toprol, aspirin, atorvastatin initiated Daily weights, follow Is and Os Cardiology consulted, appreciate recs Complicated UTI UA suggestive of infection Urine culture grew ESBL E coli Rocephin switched to IV Ertapenem, treat for 5-7 days Abdominal Pain Pt with abdominal pain complaints KUB ordered-noted small amt of stool Consider CT abd/pelvis if persistent IV antiemetics, prn bowel regimen, prn bentyl Continue to monitor Hypokalemia replete as needed Erythrocytosis Continue to monitor Type 2 diabetes mellitus: Outpatient chart reviewed - last saw endocrinology in January 2023, missed appt with glycemic pharmacy clinic so PCP has been prescribing medications although it is unclear how compliant pt is with regimen hgba1c of 7.7 Basal insulin with Novolog sliding scale Diabetic diet, BSG ACHS PCP followup CKD (chronic kidney disease) stage 3, GFR 30-59 ml/min Cr currently normal Unclear what pt's baseline is Monitor BMP with diuresis Diet: HH/DMII Code status: Full code DVT prophylaxis: subQ heparin Dispo: PT/OT ordered for further recs Admission and Anticipated Discharge Date Admission Date: March 02, 2024 Subjective pt seen while laying in bed. Spoke to son Jeff on the phone at about 3:30PM and provided an update about his mother Pt moaning, hard of hearing. Denied abdominal pain Review of Systems Review of Systems: All systems reviewed & are unremarkable except as noted in Subjective Physical Exam Physical Exam: General: Alert, moaning Psych: Appropriate mood and affect Neuro: hearing loss noted HEENT: NC/AT CV: RRR Resp: no increased effort of breathing Abdomen: Soft, nontender on exam Extremities: edema in lower extremities bilaterally. Results & Data Results & Data Vital Signs (Past 12 Hours) Vital Signs Temp Pulse Pulse Resp BP BP Pulse Ox 03/05/24 11:17 36.8 C 83 18 100/67 93 03/05/24 10:45 98 H 03/05/24 07:45 88 03/05/24 07:45 03/05/24 07:22 36.7 C 98 H 18 118/57 L 91 03/05/24 02:45 36.6 C 68 18 124/72 94 O2 Del Method 03/05/24 11:17 Room Air 03/05/24 10:45 03/05/24 07:45 03/05/24 07:45 Room Air 03/05/24 07:22 Room Air 03/05/24 02:45 Room Air (2) CKD (chronic kidney disease) stage 3, GFR 30-59 ml/min Chronic kidney disease stage 3 subtype: unspecified whether 3a or 3b Qualified Code(s): N18.30 - Chronic kidney disease, stage 3 unspecified (3) Type 2 diabetes mellitus Diabetes mellitus skilled nursing insulin use: unspecified skilled nursing insulin use status
--- NOTE | 2024-03-05 17:17 | Cardiology Progress Note ---
Date of Service March 05, 2024 Assessment & Plan (1) Acute on chronic heart failure with reduced ejection fraction and diastolic dysfunction: (2) Pleural effusion: (3) LV dysfunction: (4) Sinus tachycardia: Plan Acute decompensated systolic heart failure Cardiomyopathy EF 30 to 35% Moderate to severe mitral regurgitation Elevated troponin in the setting of heart failure demand supply ischemia Volume status is improving on Lasix 40 mg twice daily net negative by 6.5 liters BP low hold on evening dose of lasix metoprolol xl 25 mg twice daily low dose lisniopril potassium is low will need supplementaion Needs ischemic evaluation evaluation once volume status is improved cardiac cath vs nuclear stress test. comprehension of her health condition is limited Optimize heart failure therapy Daily weights low-salt diet Admission and Anticipated Discharge Date Admission Date: March 02, 2024 Subjective shortness of breath has improved , no chest pain fatique Review of Systems Constitutional: + fatigue and + weakness Respiratory: + cough, + dyspnea and + dyspnea on exer tion Cardiovascular: + dyspnea at rest, + dyspnea on exertion , + orthopnea and + edema; no chest pain Gastrointestinal: + bloating and + nausea Physical Exam Constitutional: + ill appearing Respiratory: Auscultation: + diminished lung sounds and + crackles Cardiovascular: Rate/Rhythm: + tachycardic Heart Sounds: normal S1, + gallop and + murmur Gastrointestinal (Abdomen): Percussion/Palpation: abdomen soft Results & Data Vital Signs (Past 12 Hours) Vital Signs Temp Pulse Pulse Resp BP BP Pulse Ox 03/05/24 15:22 36.9 C 94 H 19 92/60 L 89/57 L 91 03/05/24 14:30 99 H 03/05/24 11:17 36.8 C 83 18 100/67 93 03/05/24 10:45 98 H 03/05/24 07:45 88 03/05/24 07:45 03/05/24 07:22 36.7 C 98 H 18 118/57 L 91 O2 Del Method 03/05/24 15:22 Room Air 03/05/24 14:30 03/05/24 11:17 Room Air 03/05/24 10:45 03/05/24 07:45 03/05/24 07:45 Room Air 03/05/24 07:22 Room Air Laboratory Results CBC 03/05/24 Range/Units 05:47 WBC 13.12 H (4.8-10.8) K/ul RBC 5.54 H (4.20-5.40) M/uL Hgb 15.1 (12.0-16.0) g/dl Hct 46.5 (37.0-47.0) % Plt Count 129 L (130-400) K/uL Neut # (Auto) 10.88 H (1.40-6.50) K/uL Lymph # (Auto) 0.58 L (1.20-3.40) K/uL [place] # (Auto) 1.55 H (0.11-0.59) K/uL Eos # (Auto) 0.00 (0.00-0.50) K/uL Baso # (Auto) 0.01 (0.00-0.20) K/uL Comprehensive Metabolic Panel 03/05/24 Range/Units 05:47 Sodium 142 (136-145) mmol/L Potassium 3.3 L (3.5-5.1) mmol/L Chloride 98 (98-107) mmol/L Carbon Dioxide 34 H (21-32) mmol/L BUN 25 H (6-23) mg/dl Creatinine 0.71 (0.6-1.2) mg/dl Glucose 151 H (70-99(Fasting)) mg/dl Calcium 8.0 L (8.6-10.3) mg/dl Intake and Output 03/05/24 03/05/24 03/05/24 06:59 14:59 22:59 Intake Total 150 / 590 480 / 480 Output Total 200 / 1800 225 / 225 Balance -50 / -1210 255 / 255 Intake: Oral 150 / 590 480 / 480 Output: Urine Amount (Catheter) 200 / 1800 225 / 225 Fox/Indwelling 200 / 1800 225 / 225 Medications Administered Current Inpatient Medications Acetaminophen (Acetaminophen 325 Mg Tab) 650 mg PO Q4H PRN PRN Reason: Pain or Fever Stop: 04/01/24 18:38 Aspirin (Aspirin 81 Mg Ectab) 81 mg PO [facility] Stop: 04/02/24 12:44 Last Admin: 03/05/24 10:47 Dose: 81 mg Atorvastatin Calcium (Atorvastatin 20 Mg Tab) [facility] Stop: 04/02/24 12:44 Last Admin: 03/05/24 10:48 Dose: 20 mg Dextrose (Dextrose 50% 50 Ml Syringe) 25 - 50 ml IV UD PRN; Protocol PRN Reason: Hypoglycemia Protocol Stop: 04/01/24 18:38 Dicyclomine HCl (Dicyclomine Hcl 10 Mg Cap) 10 mg PO Q8H PRN PRN Reason: abdominal cramping Stop: 04/02/24 17:29 Docusate Sodium (Docusate Sodium 100 Mg Cap) 100 mg PO BID [facility] Stop: 04/02/24 20:59 Last Admin: 03/05/24 10:48 Dose: 100 mg Furosemide (Furosemide 40 Mg/4 Ml Vial) 40 mg IV [id number] [facility] Stop: 04/01/24 18:38 Last Admin: 03/05/24 10:46 Dose: 40 mg Glucagon (Glucagon For Inj 1 Mg Vial) 1 mg SQ UD PRN; Protocol PRN Reason: Hypoglycemia Protocol Stop: 04/01/24 18:38 Glucose (Glucose 40% Gel 15 Gm Tube) 15 - 30 gm PO UD PRN; Protocol PRN Reason: Hypoglycemia Protocol Stop: 04/01/24 18:38 Glucose (Glucose 10 Tab/Tube) 4 - 8 tab PO UD PRN; Protocol PRN Reason: Hypoglycemia Treatment Stop: 04/01/24 18:38 Heparin Sodium (Porcine) (Heparin Sod 5,000 Unit/0.5 Ml Vial) 5,000 units SQ Q8 [facility] Stop: 04/01/24 21:59 Last Admin: 03/05/24 14:08 Dose: 5,000 units Ertapenem 1,000 mg/ Syringe 10 mls @ 2 mls/min IV Q24H [facility] Stop: 03/14/24 10:59 Last Admin: 03/05/24 11:44 Dose: 2 mls/min Insulin Aspart (Insulin Aspart Per Unit Charge) 0 units SC ACHS [facility] Stop: 04/01/24 18:38 Last Admin: 03/05/24 12:52 Dose: 5 units Insulin Glargine (Lantus Per Unit Charge) 5 units SQ DAILY [facility] Stop: 04/04/24 08:59 Last Admin: 03/05/24 09:23 Dose: 5 units Lisinopril (Lisinopril 2.5 Mg Tab) 2.5 mg PO QAM [facility] Stop: 04/01/24 18:38 Last Admin: 03/05/24 10:48 Dose: 2.5 mg Magnesium Oxide (Magnesium Oxide 400 Mg Tab) 400 mg PO QAM [facility] Stop: 04/02/24 13:59 Last Admin: 03/05/24 10:48 Dose: 400 mg Metoprolol Succinate (Metoprolol Succ 25mg Ext Rel Tab) 25 mg PO BID [facility]IM Stop: 04/03/24 20:59 Last Admin: 03/05/24 10:48 Dose: 25 mg Miscellaneous (Carbohydrates For Hypoglycemia ) 15 - 30 gm PO UD PRN PRN Reason: Hypoglycemia Protocol Stop: 04/01/24 18:38 Ondansetron HCl (Ondansetron Inj 2 Mg/Ml 2 Ml Vial) 4 mg IV Q6H PRN PRN Reason: Nausea And Vomiting Stop: 04/02/24 17:25 Last Admin: 03/05/24 09:23 Dose: 4 mg Polyethylene Glycol (Polyethylene (Miralax) 17 Gm Pack) 17 gm PO DAILY PRN PRN Reason: Constipation Stop: 04/02/24 17:22 Potassium Chloride (Potassium Chloride Crtab 20 Meq Tabcr) 20 meq PO BID [facility]IM Stop: 04/02/24 20:59 Last Admin: 03/05/24 10:49 Dose: 20 meq Spironolactone (Spironolactone 12.5 Mg Tab) 12.5 mg PO DAILY [facility]ADIM Stop: 04/03/24 09:29 Last Admin: 03/05/24 10:49 Dose: 12.5 mg
[2024-03-06 06:32] LABS: Basophils # (auto) 0.02 K/uL (0.00-0.20); Basophils % (auto) 0.2 %; Eosinophils # (auto) 0.02 K/uL (0.00-0.50); Eosinophils % (auto) 0.2 %; Hemoglobin 14.8 g/dl (12.0-16.0); Immature Granulocytes # (auto) 0.07 K/uL (0.01-0.20); Immature Granulocytes % (auto) 0.6 %; Lymphocytes # (auto) 0.75 K/uL (1.20-3.40); Mean Corpuscular Hgb Conc 31.5 g/dL (32.0-36.0); Mean Corpuscular Volume 85.6 fL (80.0-100.0); Mean Platelet Volume 12.2 fL (9.4-12.4); Monocytes # (auto) 1.47 K/uL (0.11-0.59); Monocytes % (auto) 11.7 %; Neutrophils # (auto) 10.26 K/uL (1.40-6.50); Neutrophils % (auto) 81.3 %; Platelet Count 149 K/uL (130-400); RDW Coefficient of Variation 14.9 % (11.5-14.5); RDW Standard Deviation 45.6 fL (36.4-46.3); Red Blood Count 5.49 M/uL (4.20-5.40); White Blood Count 12.59 K/ul (4.8-10.8)
[2024-03-06 06:53] LABS: BUN Creatinine Ratio 35.5 (10-20); Calcium 7.8 mg/dl (8.6-10.3); Creatinine Clr Calc Pharmacy 41.6 ml/min; Est GFR (African American) 56.9 ml/min; Est GFR (Non-African American) 49.1 ml/min; Potassium 4.6 mmol/L (3.5-5.1)
[2024-03-06] MEDS: ACETAMINOPHEN 325 MG TAB PO PRN (09:05)
--- NOTE | 2024-03-06 09:48 | Cardiology Progress Note ---
Date of Service March 06, 2024 Assessment & Plan (1) Acute on chronic heart failure with reduced ejection fraction and diastolic dysfunction: (2) Pleural effusion: (3) LV dysfunction: (4) Sinus tachycardia: Plan Presentation with newly observed acute decompensated systolic heart failure with presumed associated bilateral pleural effusions Echo this admission with moderately reduced LV systolic function, EF 30 to 35%, moderate to severe mitral regurgitation. Narrow QRS duration NYHA Class III, multifactorial Volume status: Normovolemic Elevated troponin in the setting of heart failure, demand supply ischemia Trivial loculated right lateral pericardial effusion. No echocardiographic indications of tamponade. Frequent premature ventricular complexes, average rate in the 90s. Recommendations: 1. Discontinue IV furosemide 2. Discontinue supplemental potassium 3. Initiate oral furosemide in AM of 03/07 4. Continue low dose spironolactone 5. Continue metoprolol succinate 6. Continue low dose lisinopril as blood pressure permits 7. Continue conservative medical management for now, reconsider referral for nuclear stress test as an outpatient. I spent a total of 28 minutes on the date of service in preparation, delivery, and documentation of the care provided to this patient excluding any time spent in the performance of separately billed services. This visit was a split-shared visit with the substantive portion of the medical decision making performed by the supervising braker passenger train/billing provider. Admission and Anticipated Discharge Date Admission Date: March 02, 2024 Supervising Physician Co-Signing Physician Notes Patient was seen and personally examined. Full assessment and plan as outlined above. Care and management discussed with advanced provider and personally endorsed. Frail-appearing female clinically responding to diuretics and adjustments in medical therapies. Now on GDMT I spent a total of 20 minutes on the date of service in preparation, delivery, and documentation of the care provided to this patient excluding any time spent in the performance of separately billed services Subjective Patient seen and examined. Chart, medications, and telemetry reviewed. Complaints: Diffuse pain x 2 weeks duration. Breathing has improved. No palpitations I's/O's -6740 mL overall Weight on presentation was 76.5 kg, down to 67.2 kg today. Review of Systems Review of Systems: Complete Review of Systems is as stated above, negative, or noncontributory. Physical Exam Physical Exam: General: A&Ox3. Considerably hard of hearing HENT: Normocephalic. Atraumatic. Eyes: PER. Conjunctiva pink, sclera clear. Neck: Normal JVP. HJR. Heart: RRR. No murmur. No rub. No gallop. PMI is nondisplaced. Lungs: Clear to auscultation. Abdomen: +BS. Soft. Nontender. No masses or organomegaly. Extremities: No clubbing, cyanosis, or edema. Limited neurological examination is without focal deficits. Pulses: radial=2/4, posterior tibial=2/4. Results & Data Vital Signs (Past 12 Hours) Vital Signs Temp Pulse Resp BP BP Pulse Ox Pulse Ox 03/06/24 08:12 03/06/24 07:22 36.6 C 85 21 97/67 L 94 03/06/24 03:34 36.8 C 33 L 16 115/71 90 03/06/24 00:00 93 03/05/24 22:58 36.4 C L 92 H 16 95/61 L 93 O2 Del Method O2 Del Method O2 Flow Rate 03/06/24 08:12 Nasal Cannula 2 03/06/24 07:22 Room Air 03/06/24 03:34 Room Air 03/06/24 00:00 Room Air 03/05/24 22:58 Room Air Laboratory Results CBC 03/06/24 Range/Units 06:13 WBC 12.59 H (4.8-10.8) K/ul RBC 5.49 H (4.20-5.40) M/uL Hgb 14.8 (12.0-16.0) g/dl Hct 47.0 (37.0-47.0) % Plt Count 149 (130-400) K/uL Neut # (Auto) 10.26 H (1.40-6.50) K/uL Lymph # (Auto) 0.75 L (1.20-3.40) K/uL [place] # (Auto) 1.47 H (0.11-0.59) K/uL Eos # (Auto) 0.02 (0.00-0.50) K/uL Baso # (Auto) 0.02 (0.00-0.20) K/uL Comprehensive Metabolic Panel 03/06/24 Range/Units 06:13 Sodium 138 (136-145) mmol/L Potassium 4.6 D (3.5-5.1) mmol/L Chloride 98 (98-107) mmol/L Carbon Dioxide 33 H (21-32) mmol/L BUN 39 H (6-23) mg/dl Creatinine 1.10 D (0.6-1.2) mg/dl Glucose 152 H (70-99(Fasting)) mg/dl Calcium 7.8 L (8.6-10.3) mg/dl Intake and Output 03/05/24 03/06/24 03/06/24 22:59 06:59 14:59 Intake Total 200 / 780 100 / 780 Output Total 325 / 700 150 / 700 Balance -125 / 80 -50 / 80 Intake: Oral 200 / 780 100 / 780 Output: Urine Amount (Catheter) 325 / 700 150 / 700 Fox/Indwelling 325 / 700 150 / 700 Other: Weight 67.2 kg Weight Measurement Method Built in [facility] Diagnostic Findings March 03, 2024 TTE: Moderately reduced LV systolic function. EF 30 to 35%. Mild concentric LVH. Trileaflet aortic valve with moderate aortic valve sclerosis, without significant stenosis. Moderate to severe mitral regurgitation. Mild tricuspid regurgitation. Trivial loculated right lateral pericardial effusion. No echocardiographic indications of tamponade. Moderate size left pleural effusion. Moderate size right pleural effusion. Telemetry sinus with frequent premature ventricular complexes, average rate in the 90s.
[2024-03-06] MEDS: CALCIUM GLUCONATE 1,000 MG/60 ML BAG IV SCH (11:14)
--- NOTE | 2024-03-06 13:07 | XRay Report ---
XR chest 1V portable HISTORY: 73 years-old Female pleural effusions acute shortness of breath COMPARISON: 03/02/2024 TECHNIQUE: AP view of the chest FINDINGS: Cardiomegaly with progressive pulmonary edema. No pneumothorax. Layering pleural effusions with bibas ilar consolidation redemonstrated, right greater than left. Bilateral breast implants with capsular c alcifications again noted on the right. IMPRESSION: 1. Cardiomegaly with progressive pulmonary edema. 2. Right greater than left layering pleural effusions with bibasilar consolidation. ACT 112: Negative or not required by law. The above report was generated using voice recognition software. It may contain grammatical, syntax o r spelling errors. Electronically signed by: Terry Jasso M.D. 03/06/2024 1:06 PM
--- NOTE | 2024-03-06 15:38 | Hospitalist Progress Note ---
Date of Service March 06, 2024 Assessment & Plan (1) New onset of congestive heart failure: (2) CKD (chronic kidney disease) stage 3, GFR 30-59 ml/min: (3) Type 2 diabetes mellitus: Plan This is a 73 y/o female with uncontrolled DM2, CKD3, and other history as outlined below who presents to the ED today with worsening shortness of breath. She notes worsening LE edema over the last few weeks and now shortness of breath, which is also worsening. Acute on chronic heart failure with reduced ejection fraction and diastolic dysfunction Pt presenting with SOB and edema BNP of 1071 Chest XRAY noting cardiomegaly and layering pleural effusions R>L Consider CT chest to further define ECHO with EF 30-35%, mod- severe MR, mod aortic sclerosis w/o aortic stenosis, moderate L and R pleural effusions, trivial loculated R lateral pericardial effusion Treated with IV Lasix 40mg BID, spironolactone -transition to po lasix in AM per cardiology Lisinopril, Toprol, aspirin, atorvastatin initiated Daily weights, follow Is and Os Cardiology consulted, appreciate recs Complicated UTI UA suggestive of infection Urine culture grew ESBL E coli Rocephin switched to IV Ertapenem, Day 3/5 Abdominal Pain Pt with abdominal pain complaints KUB ordered-noted small amt of stool Consider CT abd/pelvis if persistent IV antiemetics, prn bowel regimen, prn bentyl Continue to monitor Hypokalemia replete as needed Erythrocytosis Continue to monitor Type 2 diabetes mellitus: Outpatient chart reviewed - last saw endocrinology in January 2023, missed appt with glycemic pharmacy clinic so PCP has been prescribing medications although it is unclear how compliant pt is with regimen hgba1c of 7.7 Basal insulin with Novolog sliding scale Diabetic diet, BSG ACHS PCP followup CKD (chronic kidney disease) stage 3, GFR 30-59 ml/min Cr currently normal Unclear what pt's baseline is Monitor BMP with diuresis Diet: HH/DMII Code status: Full code DVT prophylaxis: subQ heparin Dispo: PT/OT recommending acute rehab Admission and Anticipated Discharge Date Admission Date: March 02, 2024 Subjective Pt was seen, moaning. States she does not feel well. Spoke to son on telephone at about 4:45pm, provided update. BM the day before Review of Systems Review of Systems: All systems reviewed & are unremarkable except as noted in Subjective Physical Exam Physical Exam: General: Alert, moaning Psych: Appropriate mood and affect Neuro: hearing loss noted HEENT: NC/AT CV: RRR Resp: no increased effort of breathing Abdomen: Soft, nontender on exam Extremities: edema in lower extremities bilaterally. Results & Data Results & Data Vital Signs (Past 12 Hours) Vital Signs Temp Pulse Pulse Resp BP Pulse Ox O2 Del Method 03/06/24 15:32 84 03/06/24 11:00 36.5 C 79 18 92/62 L 91 Room Air 03/06/24 08:12 Nasal Cannula 03/06/24 07:22 36.6 C 85 21 97/67 L 94 Room Air 03/06/24 05:59 97 H O2 Flow Rate 03/06/24 15:32 03/06/24 11:00 03/06/24 08:12 2 03/06/24 07:22 03/06/24 05:59 (2) CKD (chronic kidney disease) stage 3, GFR 30-59 ml/min Chronic kidney disease stage 3 subtype: unspecified whether 3a or 3b Qualified Code(s): N18.30 - Chronic kidney disease, stage 3 unspecified (3) Type 2 diabetes mellitus Diabetes mellitus terminal block assembler insulin use: unspecified alf insulin use status
[2024-03-07 07:22] LABS: Hematocrit (blood only) 47.1 % (37.0-47.0); Hemoglobin 14.8 g/dl (12.0-16.0); Mean Corpuscular Hemoglobin 26.9 pg (25.0-34.0); Mean Corpuscular Hgb Conc 31.4 g/dL (32.0-36.0); Mean Corpuscular Volume 85.5 fL (80.0-100.0); Mean Platelet Volume 12.1 fL (9.4-12.4); Platelet Count 185 K/uL (130-400); RDW Coefficient of Variation 14.6 % (11.5-14.5); RDW Standard Deviation 45.1 fL (36.4-46.3); Red Blood Count 5.51 M/uL (4.20-5.40); White Blood Count 11.21 K/ul (4.8-10.8)
[2024-03-07 07:36] LABS: Albumin Globulin Ratio 1.1 (0.9-2); Albumin Level 2.7 gm/dl (3.4-5.0); BUN Creatinine Ratio 42.9 (10-20); Calcium 8.1 mg/dl (8.6-10.3); Creatinine Clr Calc Pharmacy 41.6 ml/min; Est GFR (African American) 55.6 ml/min; Globulin 2.5 gm/dl (2.5-4.0); Magnesium 2.1 mg/dl (1.7-2.4); Phosphorus 3.5 mg/dl (2.5-4.9); Total Protein 5.2 gm/dl (6.0-8.3)
[2024-03-07] MEDS ORDERED: FUROSEMIDE 20 MG TAB PO SCH (09:00)
--- NOTE | 2024-03-07 10:04 | Hospitalist Progress Note ---
Date of Service March 07, 2024 Assessment & Plan (1) New onset of congestive heart failure: (2) CKD (chronic kidney disease) stage 3, GFR 30-59 ml/min: (3) Type 2 diabetes mellitus: Plan This is a 73 y/o female with uncontrolled DM2, CKD3, and other history as outlined below who presents to the ED today with worsening shortness of breath. She notes worsening LE edema over the last few weeks and now shortness of breath, which is also worsening. Acute on chronic heart failure with reduced ejection fraction and diastolic dysfunction Pt presenting with SOB and edema BNP of 1071 Chest XRAY noting cardiomegaly and layering pleural effusions R>L Consider CT chest to further define ECHO with EF 30-35%, mod- severe MR, mod aortic sclerosis w/o aortic stenosis, moderate L and R pleural effusions, trivial loculated R lateral pericardial effusion Treated with IV Lasix 40mg BID, spironolactone -cardiology holding transition to po lasix that was planned for this AM Lisinopril, Toprol, aspirin, atorvastatin initiated Daily weights, follow Is and Os Cardiology consulted, appreciate recs Complicated UTI UA suggestive of infection Urine culture grew ESBL E coli Rocephin switched to IV Ertapenem, Day 4/5 Abdominal Pain Pt with abdominal pain complaints KUB ordered on 03/03-noted small amt of stool Consider CT abd/pelvis if persistent IV antiemetics, prn bowel regimen, prn bentyl Continue to monitor Hypokalemia replete as needed Erythrocytosis Continue to monitor Type 2 diabetes mellitus: Outpatient chart reviewed - last saw endocrinology in January 2023, missed appt with glycemic pharmacy clinic so PCP has been prescribing medications although it is unclear how compliant pt is with regimen hgba1c of 7.7 Basal insulin with Novolog sliding scale Diabetic diet, BSG ACHS PCP followup CKD (chronic kidney disease) stage 3, GFR 30-59 ml/min Cr currently normal Unclear what pt's baseline is Monitor BMP with diuresis Diet: HH/DMII Code status: Full code DVT prophylaxis: subQ heparin Dispo: PT/OT recommending acute rehab Admission and Anticipated Discharge Date Admission Date: March 02, 2024 Subjective Pt was seen with daughter and son at bedside. Per son, they were told by the nurse overnight that pt's status was worsening. Son concerned that pt might need palliative care. Daughter notes pt is confused. note they did not recognize her. Pt alert and oriented x 3. stated name, stated she was at [facility], was able to say year and that it was the "end of February" States having abdominal pain Review of Systems Review of Systems: All systems reviewed & are unremarkable except as noted in Subjective Physical Exam Physical Exam: General: Alert, sitting in chair at bedside Psych: Appropriate mood and affect Neuro: hearing loss noted HEENT: NC/AT CV: RRR Resp: breath sounds decreased bilaterally, no increased effort of breathing Abdomen: Soft, tender on exam Extremities: edema in lower extremities bilaterally. Results & Data Results & Data Vital Signs (Past 12 Hours) Vital Signs Temp Pulse Resp BP BP Pulse Ox O2 Del Method 03/07/24 07:25 36.8 C 79 19 97/66 L 91 Room Air 03/07/24 03:31 36.9 C 92 H 22 96/64 L 96 Room Air 03/07/24 00:15 Room Air 03/06/24 22:56 37.0 C 87 16 101/72 92 Room Air (2) CKD (chronic kidney disease) stage 3, GFR 30-59 ml/min Chronic kidney disease stage 3 subtype: unspecified whether 3a or 3b Qualified Code(s): N18.30 - Chronic kidney disease, stage 3 unspecified (3) Type 2 diabetes mellitus Diabetes mellitus fpc insulin use: unspecified fpc insulin use status
--- NOTE | 2024-03-07 12:15 | Cardiology Progress Note ---
Date of Service March 07, 2024 Assessment & Plan (1) Acute on chronic heart failure with reduced ejection fraction and diastolic dysfunction: (2) Pleural effusion: (3) LV dysfunction: (4) Sinus tachycardia: Plan Frail 73 year old female with newly observed acute decompensated systolic heart failure, bilateral pleural effusions Echo this admission with moderately reduced LV systolic function, EF 30 to 35%, moderate to severe mitral regurgitation. Narrow QRS duration NYHA Class III, multifactorial Elevated troponin in the setting of heart failure, demand supply ischemia Trivial loculated right lateral pericardial effusion. No echocardiographic indications of tamponade. Frequent premature ventricular complexes, average rate in the 90s. Daughter notes undiagnosed mental health concerns and inability to function at home. Recommendations: 1. Continue IV furosemide, low dose spironolactone through today then evaluate ongoing need in AM of 03/08/2024 2. Continue metoprolol succinate and low dose lisinopril as blood pressure permit. 3. Proceed with very conservative medical management only, without future ischemic workup/evaluation/intervention I spent a total of 49 minutes on the date of service in preparation, delivery, and documentation of the care provided to this patient excluding any time spent in the performance of separately billed services. This visit was a split-shared visit with the substantive portion of the medical decision making performed by the supervising treasury associate/billing provider. Admission and Anticipated Discharge Date Admission Date: March 02, 2024 Supervising Physician Co-Signing Physician Notes Patient was seen and personally examined. Full assessment and plan as outlined above. Care and management discussed with advanced provider and personally endorsed. Frail-appearing female clinically responding to diuretics and adjustments in medical therapies. Still complains of diffuse discomfort throughout entire body Now on GDMT continue IV diuretics as above No plans for more aggressive therapies I spent a total of 20 minutes on the date of service in preparation, delivery, and documentation of the care provided to this patient excluding any time spent in the performance of separately billed services Subjective Patient seen and examined. Chart, medications, and telemetry reviewed. I spoke with the patient's son and daughter at length outside of the patient's room. Daughter is a nurse currently working for her father who is an auctioneer in [place]. Initial plan yesterday was to switch to oral diuretics however IV furosemide continued after CXR resulted, revealing progressive pulmonary edema with right greater than left pleural effusions with bibasilar consolidation. Breathing improved. Ongoing lower abdominal discomfort. I's/O's -6,660 mL overall Review of Systems Review of Systems: Complete Review of Systems is as stated above, negative, or noncontributory. Physical Exam Physical Exam: General: A&Ox3. Hard of hearing HENT: Normocephalic. Atraumatic. Eyes: PER. Conjunctiva pink, sclera clear. Neck: Normal JVP. Heart: RRR. Apical systolic murmur. Lungs: Clear anteriorly. No wheeze. Abdomen: +BS. Soft. Nontender. No masses or organomegaly. Extremities: No clubbing, cyanosis, or edema. Limited neurological examination is without focal deficits. Pulses: Posterior tibial=2/4. Results & Data Vital Signs (Past 12 Hours) Vital Signs Temp Pulse Resp BP Pulse Ox O2 Del Method 03/07/24 07:25 36.8 C 79 19 97/66 L 91 Room Air 03/07/24 03:31 36.9 C 92 H 22 96/64 L 96 Room Air 03/07/24 00:15 Room Air Laboratory Results Cardiac Enzymes 03/07/24 Range/Units 06:40 AST 18 (13-39) U/L CBC 03/07/24 Range/Units 06:40 WBC 11.21 H (4.8-10.8) K/ul RBC 5.51 H (4.20-5.40) M/uL Hgb 14.8 (12.0-16.0) g/dl Hct 47.1 H (37.0-47.0) % Plt Count 185 (130-400) K/uL Comprehensive Metabolic Panel 03/07/24 Range/Units 06:40 Sodium 137 (136-145) mmol/L Potassium 5.0 (3.5-5.1) mmol/L Chloride 98 (98-107) mmol/L Carbon Dioxide 33 H (21-32) mmol/L BUN 48 H (6-23) mg/dl Creatinine 1.12 (0.6-1.2) mg/dl Glucose 118 H (70-99(Fasting)) mg/dl Calcium 8.1 L (8.6-10.3) mg/dl AST 18 (13-39) U/L ALT 11 (7-52) U/L Alkaline Phosphatase 66 (34-104) U/L Total Protein 5.2 L (6.0-8.3) gm/dl Albumin 2.7 L (3.4-5.0) gm/dl Intake and Output 03/06/24 03/07/24 03/07/24 22:59 06:59 14:59 Intake Total 100 / 780 300 / 780 Output Total 200 / 500 200 / 500 200 / 200 Balance -100 / 280 100 / 280 -200 / -200 Intake: Oral 100 / 660 300 / 660 Output: Urine Amount (Catheter) 200 / 500 200 / 500 200 / 200 Fox/Indwelling 200 / 500 200 / 500 200 / 200 Other: Weight 69.9 kg Weight Measurement Method Built in [facility] Diagnostic Findings Telemetry: Sinus with ectopy, heart rates in the 80's and 90's
[2024-03-08 09:30] LABS: Hematocrit (blood only) 49.9 % (37.0-47.0); Hemoglobin 15.7 g/dl (12.0-16.0); Mean Corpuscular Hemoglobin 27.1 pg (25.0-34.0); Mean Corpuscular Hgb Conc 31.5 g/dL (32.0-36.0); Mean Platelet Volume 11.5 fL (9.4-12.4); Platelet Count 184 K/uL (130-400); RDW Coefficient of Variation 15.2 % (11.5-14.5); RDW Standard Deviation 47.3 fL (36.4-46.3); White Blood Count 8.98 K/ul (4.8-10.8)
[2024-03-08 09:31] LABS: Albumin Level 2.9 gm/dl (3.4-5.0); BUN Creatinine Ratio 48.1 (10-20); Calcium 8.4 mg/dl (8.6-10.3); Creatinine Clr Calc Pharmacy 44.3 ml/min; Est GFR (African American) 60.9 ml/min; Est GFR (Non-African American) 52.5 ml/min; Globulin 2.8 gm/dl (2.5-4.0); Magnesium 2.3 mg/dl (1.7-2.4); Phosphorus 3.7 mg/dl (2.5-4.9); Potassium 4.7 mmol/L (3.5-5.1); Total Protein 5.7 gm/dl (6.0-8.3)
--- NOTE | 2024-03-08 10:08 | Cardiology Progress Note ---
Date of Service March 08, 2024 Assessment & Plan (1) Acute on chronic heart failure with reduced ejection fraction and diastolic dysfunction: (2) Pleural effusion: (3) LV dysfunction: (4) Sinus tachycardia: Plan Frail 73 year old female with newly observed acute decompensated systolic heart failure, bilateral pleural effusions Echo this admission with moderately reduced LV systolic function, EF 30 to 35%, moderate to severe mitral regurgitation. Narrow QRS duration NYHA Class III, multifactorial Elevated troponin in the setting of heart failure, demand supply ischemia Trivial loculated right lateral pericardial effusion. No echocardiographic indications of tamponade. Frequent premature ventricular complexes, average rate in the 90s. Daughter notes undiagnosed mental health concerns and inability to function at home. Recommendations: 1. Continue IV furosemide though today then transition to oral 2. Continue low dose spironolactone 3. Continue metoprolol succinate 4. Continue low dose lisinopril as blood pressure permits. 5. Continue very conservative medical management only, without future ischemic workup/evaluation/intervention I spent a total of 22 minutes on the date of service in preparation, delivery, and documentation of the care provided to this patient excluding any time spent in the performance of separately billed services. This visit was a split-shared visit with the substantive portion of the medical decision making performed by the supervising director of maternity services/billing provider. Admission and Anticipated Discharge Date Admission Date: March 02, 2024 Supervising Physician Co-Signing Physician Notes Patient was seen and personally examined. Full assessment and plan as outlined above. Care and management discussed with advanced provider and personally endorsed. Frail-appearing female clinically responding to diuretics and adjustments in medical therapies. Still complains of "tired" Now on GDMT continue IV diuretics as above convert to oral No plans for more aggressive therapies I spent a total of 20 minutes on the date of service in preparation, delivery, and documentation of the care provided to this patient excluding any time spent in the performance of separately billed services Subjective Patient seen and examined. Chart, medications, and telemetry reviewed. Complaints: Tired. No chest pain or dyspnea. Telemetry: Sinus with ventricular ectopy, heart rates in the 80's. Review of Systems Review of Systems: Unable to be obtained. Physical Exam 2 Physical Exam: General: A&Ox3. Hard of hearing HENT: Normocephalic. Atraumatic. Eyes: PER. Conjunctiva pink, sclera clear. Neck: Normal JVP. Heart: RRR. Apical systolic murmur. Lungs: Clear anteriorly. No wheeze. Abdomen: +BS. Soft. Nontender. No masses or organomegaly. Extremities: No clubbing, cyanosis, or edema. Limited neurological examination is without focal deficits. Pulses: Posterior tibial=2/4. Results & Data Vital Signs (Past 12 Hours) Vital Signs Temp Pulse Resp BP BP Pulse Ox Pulse Ox 03/08/24 07:17 36.4 C L 86 18 121/75 97 03/08/24 03:03 36.4 C L 62 18 100/65 97 03/08/24 00:00 94 03/07/24 22:48 36.4 C L 87 24 107/64 94 O2 Del Method O2 Del Method O2 Flow Rate O2 Flow Rate 03/08/24 07:17 Nasal Cannula 1 03/08/24 03:03 Nasal Cannula 1 03/08/24 00:00 Nasal Cannula 1 03/07/24 22:48 Nasal Cannula 1 Laboratory Results Cardiac Enzymes 03/08/24 Range/Units 08:36 AST 21 (13-39) U/L CBC 03/08/24 Range/Units 08:36 WBC 8.98 (4.8-10.8) K/ul RBC 5.80 H (4.20-5.40) M/uL Hgb 15.7 (12.0-16.0) g/dl Hct 49.9 H (37.0-47.0) % Plt Count 184 (130-400) K/uL Comprehensive Metabolic Panel 03/08/24 Range/Units 08:36 Sodium 140 (136-145) mmol/L Potassium 4.7 (3.5-5.1) mmol/L Chloride 97 L (98-107) mmol/L Carbon Dioxide 37 H (21-32) mmol/L BUN 50 H (6-23) mg/dl Creatinine 1.04 (0.6-1.2) mg/dl Glucose 111 H (70-99(Fasting)) mg/dl Calcium 8.4 L (8.6-10.3) mg/dl AST 21 (13-39) U/L ALT 11 (7-52) U/L Alkaline Phosphatase 70 (34-104) U/L Total Protein 5.7 L (6.0-8.3) gm/dl Albumin 2.9 L (3.4-5.0) gm/dl Intake and Output 03/07/24 03/08/24 03/08/24 22:59 06:59 14:59 Output Total 350 / 900 250 / 900 Balance -350 / -800 -250 / -800 Output: Urine Amount (Catheter) 350 / 900 250 / 900 Ofx/Indwelling 350 / 900 250 / 900 Other: Other Intake Source Sips Weight 68.2 kg Weight Measurement Method Built in [facility]
--- NOTE | 2024-03-08 14:14 | Hospitalist Progress Note ---
Date of Service March 08, 2024 Assessment & Plan (1) New onset of congestive heart failure: (2) CKD (chronic kidney disease) stage 3, GFR 30-59 ml/min: (3) Type 2 diabetes mellitus: Plan Ms. Saleem is a 73 year old female with uncontrolled DM2, CKD3, and other history as outlined below who presents to the ED today admitted for new onset acute heart failure with reduced EF. Patient is improving but notably fluctuating interactivity which seems to be on her own volition. #Acute on chronic heart failure with reduced ejection fraction and diastolic dysfunction Pt presenting with SOB and edema BNP 1071 on admission Chest XRAY noting cardiomegaly and layering pleural effusions R>L Consider CT chest to further define ECHO with EF 30-35%, mod- severe MR, mod aortic sclerosis w/o aortic stenosis, moderate L and R pleural effusions, trivial loculated R lateral pericardial effusion Treated with IV Lasix 40mg BID, spironolactone Lisinopril, Toprol, aspirin, atorvastatin initiated this admission Daily weights, follow Is and Os Cardiology consulted, appreciate recs -Transition to PO lasix in am -Continue conservative management, no planned future ischemic evaluation #Uncomplicated UTI UA suggestive of infection Urine culture grew ESBL E coli Rocephin switched to IV Ertapenem, Day 5 #Abdominal Pain resolved Pt with abdominal pain complaints KUB ordered on 03/03-noted small amt of stool Consider CT abd/pelvis if persistent IV antiemetics, prn bowel regimen, prn bentyl Continue to monitor #Hypokalemia replete as needed #Erythrocytosis iso chronic tobacco use Continue to monitor #Type 2 diabetes mellitus: Outpatient chart reviewed - last saw endocrinology in January 2023, missed appt with glycemic pharmacy clinic so PCP has been prescribing medications although it is unclear how compliant pt is with regimen hgba1c of 7.7 Basal insulin with Novolog sliding scale Diabetic diet, BSG ACHS PCP followup #CKD (chronic kidney disease) stage 3, GFR 30-59 ml/min Cr currently normal Unclear what pt's baseline is Monitor BMP with diuresis Diet: HH/DMII Code status: Full code DVT prophylaxis: subQ heparin Dispo: PT/OT recommending acute rehab Admission and Anticipated Discharge Date Admission Date: March 02, 2024 Subjective NAEO Patient awakens easily, slow to answer questions, but will do so appropriately. Denies any acute concerns and quick to dismiss further questioning Physical Exam Constitutional: awake, eating breakfast Respiratory: normal respiratory effort, lungs clear to auscultation Cardiovascular: RRR, no murmur, no edema Gastrointestinal (Abdomen): normal bowel sounds, soft, nontender, no hepatosplenomegaly Results & Data Results & Data Vital Signs (Past 12 Hours) Vital Signs Temp Pulse Resp BP Pulse Ox O2 Del Method O2 Flow Rate 03/08/24 11:16 36.3 C L 85 16 120/81 96 Nasal Cannula 1 03/08/24 08:00 Nasal Cannula 1 03/08/24 07:17 36.4 C L 86 18 121/75 97 Nasal Cannula 1 03/08/24 03:03 36.4 C L 62 18 100/65 97 Nasal Cannula 1 Laboratory Results Short CBC 03/08/24 Range/Units 08:36 WBC 8.98 (4.8-10.8) K/ul Hgb 15.7 (12.0-16.0) g/dl Hct 49.9 H (37.0-47.0) % Plt Count 184 (130-400) K/uL BMP 03/08/24 08:36 Sodium 140 Potassium 4.7 Chloride 97 L Carbon Dioxide 37 H BUN 50 H Creatinine 1.04 Glucose 111 H Calcium 8.4 L Liver Function 03/08/24 Range/Units 08:36 Total Bilirubin 1.0 (0.2-1.0) mg/dl AST 21 (13-39) U/L ALT 11 (7-52) U/L Alkaline Phosphatase 70 (34-104) U/L Albumin 2.9 L (3.4-5.0) gm/dl Medications Administered Home Medications Medication Instructions Recorded Confirmed Last Taken acetaminophen 325 mg tablet 650 mg PO TID PRN pain/fever 03/02/24 03/02/24 Unknown (Tylenol) insulin aspart U-100 100 unit/mL 6 unit subcut TID 03/02/24 03/02/24 Unknown (3 mL) subcutaneous pen insulin glargine 100 unit/mL (3 20 unit subcut HS 03/02/24 03/02/24 Unknown mL) subcutaneous pen (Lantus Solostar U-100 Insulin) metformin 500 mg tablet,extended 500 mg PO BIDM 03/02/24 03/02/24 Unknown release 24 hr Active Medications Generic Name Dose Route Start Last Admin Trade Name Freq PRN Reason Stop Dose Admin Acetaminophen 650 mg 03/02/24 18:39 03/06/24 09:05 Acetaminophen 325 Mg Tab PO 04/01/24 18:38 650 mg Q4H PRN Administration Pain or Fever Aspirin 81 mg 03/03/24 12:45 03/08/24 08:55 Aspirin 81 Mg Ectab PO 04/02/24 12:44 81 mg QAM VADIM Administration Atorvastatin Calcium 20 mg 03/03/24 12:45 03/08/24 08:55 Atorvastatin 20 Mg Tab PO 04/02/24 12:44 20 mg QAM VADIM Administration Docusate Sodium 100 mg 03/03/24 21:00 03/08/24 08:54 Docusate Sodium 100 Mg Cap PO 04/02/24 20:59 100 mg BID VADIM Administration Furosemide 40 mg 03/02/24 18:39 03/08/24 08:55 Furosemide 40 Mg/4 Ml Vial IV 03/08/24 23:59 40 mg [id number] VADIM Administration Heparin Sodium (Porcine) 5,000 units 03/02/24 22:00 03/08/24 13:58 Heparin Sod 5,000 Unit/0.5 Ml Vial SQ 04/01/24 21:59 5,000 units Q8 VADIM Administration Insulin Aspart 0 units 03/02/24 18:39 03/08/24 12:55 Insulin Aspart Per Unit Charge SC 04/01/24 18:38 Not Given ACHS [facility] Insulin Glargine 5 units 03/05/24 09:00 03/08/24 09:00 Lantus Per Unit Charge SQ 04/04/24 08:59 5 units DAILY VADIM Administration Lisinopril 2.5 mg 03/02/24 18:39 03/08/24 08:54 Lisinopril 2.5 Mg Tab PO 04/01/24 18:38 2.5 mg QAM VADIM Administration Magnesium Oxide 400 mg 03/03/24 14:00 03/08/24 08:55 Magnesium Oxide 400 Mg Tab PO 04/02/24 13:59 400 mg QAM VADIM Administration Metoprolol Succinate 25 mg 03/04/24 21:00 03/08/24 08:54 Metoprolol Succ 25mg Ext Rel Tab PO 04/03/24 20:59 25 mg BID VADIM Administration Ondansetron HCl 4 mg 03/03/24 17:26 03/07/24 09:26 Ondansetron Inj 2 Mg/Ml 2 Ml Vial IV 04/02/24 17:25 4 mg Q6H PRN Administration Nausea And Vomiting Spironolactone 12.5 mg 03/04/24 09:30 03/08/24 08:54 Spironolactone 12.5 Mg Tab PO 04/03/24 09:29 12.5 mg DAILY VADIM Administration (2) CKD (chronic kidney disease) stage 3, GFR 30-59 ml/min Chronic kidney disease stage 3 subtype: unspecified whether 3a or 3b Qualified Code(s): N18.30 - Chronic kidney disease, stage 3 unspecified (3) Type 2 diabetes mellitus Diabetes mellitus energy and conservation technician insulin use: unspecified fdc insulin use status
[2024-03-09 08:10] LABS: Hematocrit (blood only) 50.3 % (37.0-47.0); Hemoglobin 15.7 g/dl (12.0-16.0); Mean Corpuscular Hemoglobin 27.1 pg (25.0-34.0); Mean Corpuscular Hgb Conc 31.2 g/dL (32.0-36.0); Mean Corpuscular Volume 86.7 fL (80.0-100.0); Mean Platelet Volume 11.8 fL (9.4-12.4); Platelet Count 163 K/uL (130-400); RDW Coefficient of Variation 15.3 % (11.5-14.5); RDW Standard Deviation 47.3 fL (36.4-46.3)
[2024-03-09 08:17] LABS: Albumin Level 2.8 gm/dl (3.4-5.0); Bilirubin,Total 0.8 mg/dl (0.2-1.0); Calcium 8.1 mg/dl (8.6-10.3); Magnesium 2.2 mg/dl (1.7-2.4); Potassium 4.6 mmol/L (3.5-5.1)
[2024-03-09 08:26] LABS: Albumin Globulin Ratio 1.2 (0.9-2); BUN Creatinine Ratio 60.8 (10-20); Creatinine Clr Calc Pharmacy 61.3 ml/min; Est GFR (African American) 91.9 ml/min; Est GFR (Non-African American) 79.3 ml/min; Globulin 2.4 gm/dl (2.5-4.0); Phosphorus 3.1 mg/dl (2.5-4.9); Total Protein 5.2 gm/dl (6.0-8.3)
[2024-03-09] MEDS: FUROSEMIDE 40 MG TAB PO SCH (09:04)
--- NOTE | 2024-03-09 09:57 | CT Scan Report ---
HEAD CT NONCONTRAST CT DOSE: 703.85 mGy.cm HISTORY: persistent fatigue TECHNIQUE: Multiaxial CT images of the head were performed without the use of intravenous contrast. A utomated exposure control was utilized for this study. A dose lowering technique was utilized adheri ng to the principles of ALARA. Comparison: None. Findings: The paranasal sinuses and mastoid air cells are clear. The calvarium and skull base are int act. There is no mass, hematoma, midline shift, acute infarct. White matter hypodensity is nonspecifi c but suggestive of microvascular ischemic change. The ventricles and sulci demonstrate mild age-rela roger involutional changes. Motion artifact results in suboptimal evaluation. Impression: Motion artifact. No definite acute intracranial abnormality. ACT 112: Negative or not required by law. Electronically signed by: Sudarshan Costello M.D. 03/09/2024 9:55 AM
--- NOTE | 2024-03-09 12:12 | Hospitalist Progress Note ---
Date of Service March 09, 2024 Assessment & Plan (1) New onset of congestive heart failure: (2) CKD (chronic kidney disease) stage 3, GFR 30-59 ml/min: (3) Type 2 diabetes mellitus: Plan Ms. Saleem is a 73 year old female with uncontrolled DM2, CKD3, and other history as outlined below who presents to the ED today admitted for new onset acute heart failure with reduced EF. Patient is improving but notably fluctuating interactivity which seems to be on her own volition. Patient denies any new concerns. No change in management today, patient stable for discharge to rehab when bed available. #Acute on chronic heart failure with reduced ejection fraction and diastolic dysfunction Pt presenting with SOB and edema BNP 1071 on admission Chest XRAY noting cardiomegaly and layering pleural effusions R>L Consider CT chest to further define ECHO with EF 30-35%, mod- severe MR, mod aortic sclerosis w/o aortic stenosis, moderate L and R pleural effusions, trivial loculated R lateral pericardial effusion Treated with IV Lasix 40mg BID, spironolactone Lisinopril, Toprol, aspirin, atorvastatin initiated this admission Daily weights, follow Is and Os Cardiology consulted, appreciate recs -Start PO lasix -Continue conservative management, no planned future ischemic evaluation #Uncomplicated UTI UA suggestive of infection Urine culture grew ESBL E coli Completed IV Ertapenem, Day 5 #Abdominal Pain resolved Pt with abdominal pain complaints KUB ordered on 03/03-noted small amt of stool Consider CT abd/pelvis if persistent IV antiemetics, prn bowel regimen, prn bentyl Continue to monitor #Hypokalemia replete as needed #Erythrocytosis iso chronic tobacco use Continue to monitor #Type 2 diabetes mellitus: Outpatient chart reviewed - last saw endocrinology in January 2023, missed appt with glycemic pharmacy clinic so PCP has been prescribing medications although it is unclear how compliant pt is with regimen hgba1c of 7.7 Basal insulin with Novolog sliding scale Diabetic diet, BSG ACHS PCP followup #CKD (chronic kidney disease) stage 3, GFR 30-59 ml/min Cr currently normal Unclear what pt's baseline is Monitor BMP with diuresis Diet: HH/DMII Code status: Full code DVT prophylaxis: subQ heparin Dispo: PT/OT recommending acute rehab; dispo likely tomorrow Admission and Anticipated Discharge Date Admission Date: March 02, 2024 Physical Exam Constitutional: WD/WN, vitals as above hard of hearing, more conversational Respiratory: normal respiratory effort, lungs clear to auscultation Cardiovascular: RRR, no murmur, no edema Gastrointestinal (Abdomen): normal bowel sounds, soft, nontender, no hepatosplenomegaly Results & Data Results & Data Vital Signs (Past 12 Hours) Vital Signs Temp Pulse Pulse Resp BP Pulse Ox O2 Del Method 03/09/24 10:40 36.6 C 66 18 117/66 98 Nasal Cannula 03/09/24 10:19 Nasal Cannula 03/09/24 09:21 94 03/09/24 07:33 92 H 03/09/24 07:23 36.4 C L 68 18 117/78 96 Nasal Cannula 03/09/24 02:44 36.4 C L 70 18 116/72 96 Nasal Cannula O2 Flow Rate 03/09/24 10:40 1 03/09/24 10:19 1 03/09/24 09:21 1 03/09/24 07:33 03/09/24 07:23 1 03/09/24 02:44 1.0 Laboratory Results Short CBC 03/09/24 Range/Units 07:32 WBC 7.20 (4.8-10.8) K/ul Hgb 15.7 (12.0-16.0) g/dl Hct 50.3 H (37.0-47.0) % Plt Count 163 (130-400) K/uL BMP 03/09/24 07:32 Sodium 140 Potassium 4.6 Chloride 101 Carbon Dioxide 34 H BUN 45 H Creatinine 0.74 D Glucose 131 H Calcium 8.1 L Liver Function 03/09/24 Range/Units 07:32 Total Bilirubin 0.8 (0.2-1.0) mg/dl AST 19 (13-39) U/L ALT 8 (7-52) U/L Alkaline Phosphatase 64 (34-104) U/L Albumin 2.8 L (3.4-5.0) gm/dl Medications Administered Home Medications Medication Instructions Recorded Confirmed Last Taken acetaminophen 325 mg tablet 650 mg PO TID PRN pain/fever 03/02/24 03/02/24 Unknown (Tylenol) insulin aspart U-100 100 unit/mL 6 unit subcut TID 03/02/24 03/02/24 Unknown (3 mL) subcutaneous pen insulin glargine 100 unit/mL (3 20 unit subcut HS 03/02/24 03/02/24 Unknown mL) subcutaneous pen (Lantus Solostar U-100 Insulin) metformin 500 mg tablet,extended 500 mg PO BIDM 03/02/24 03/02/24 Unknown release 24 hr Active Medications Generic Name Dose Route Start Last Admin Trade Name Freq PRN Reason Stop Dose Admin Acetaminophen 650 mg 03/02/24 18:39 03/06/24 09:05 Acetaminophen 325 Mg Tab PO 04/01/24 18:38 650 mg Q4H PRN Administration Pain or Fever Aspirin 81 mg 03/03/24 12:45 03/09/24 09:03 Aspirin 81 Mg Ectab PO 04/02/24 12:44 81 mg QAM VADIM Administration Atorvastatin Calcium 20 mg 03/03/24 12:45 03/09/24 09:03 Atorvastatin 20 Mg Tab PO 04/02/24 12:44 20 mg QAM VADIM Administration Docusate Sodium 100 mg 03/03/24 21:00 03/09/24 09:04 Docusate Sodium 100 Mg Cap PO 04/02/24 20:59 100 mg BID VADIM Administration Furosemide 40 mg 03/09/24 09:00 03/09/24 09:04 Furosemide 40 Mg Tab PO 04/08/24 08:59 40 mg BID17 VADIM Administration Heparin Sodium (Porcine) 5,000 units 03/02/24 22:00 03/09/24 05:44 Heparin Sod 5,000 Unit/0.5 Ml Vial SQ 04/01/24 21:59 5,000 units Q8 VADIM Administration Insulin Aspart 0 units 03/02/24 18:39 03/09/24 09:13 Insulin Aspart Per Unit Charge SC 04/01/24 18:38 2 units ACHS VADIM Administration Insulin Glargine 5 units 03/05/24 09:00 03/09/24 09:14 Lantus Per Unit Charge SQ 04/04/24 08:59 5 units DAILY VADIM Administration Lisinopril 2.5 mg 03/02/24 18:39 03/09/24 09:03 Lisinopril 2.5 Mg Tab PO 04/01/24 18:38 2.5 mg QAM VADIM Administration Magnesium Oxide 400 mg 03/03/24 14:00 03/09/24 09:03 Magnesium Oxide 400 Mg Tab PO 04/02/24 13:59 400 mg QAM VADIM Administration Metoprolol Succinate 25 mg 03/04/24 21:00 03/09/24 09:03 Metoprolol Succ 25mg Ext Rel Tab PO 04/03/24 20:59 25 mg BID VADIM Administration Ondansetron HCl 4 mg 03/03/24 17:26 03/09/24 09:09 Ondansetron Inj 2 Mg/Ml 2 Ml Vial IV 04/02/24 17:25 4 mg Q6H PRN Administration Nausea And Vomiting Spironolactone 12.5 mg 03/04/24 09:30 03/09/24 09:02 Spironolactone 12.5 Mg Tab PO 04/03/24 09:29 12.5 mg DAILY VADIM Administration (2) CKD (chronic kidney disease) stage 3, GFR 30-59 ml/min Chronic kidney disease stage 3 subtype: unspecified whether 3a or 3b Qualified Code(s): N18.30 - Chronic kidney disease, stage 3 unspecified (3) Type 2 diabetes mellitus Diabetes mellitus nursing 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
--- NOTE | 2024-03-09 12:21 | Cardiology Progress Note ---
Date of Service March 09, 2024 Assessment & Plan (1) Acute on chronic heart failure with reduced ejection fraction and diastolic dysfunction: (2) Pleural effusion: (3) LV dysfunction: (4) Sinus tachycardia: Plan Frail 73 year old female with newly observed acute decompensated systolic heart failure, bilateral pleural effusions Echo this admission with moderately reduced LV systolic function, EF 30 to 35%, moderate to severe mitral regurgitation. Narrow QRS duration NYHA Class III, multifactorial Elevated troponin in the setting of heart failure, demand supply ischemia Trivial loculated right lateral pericardial effusion. No echocardiographic indications of tamponade. Frequent premature ventricular complexes, asymptomatic. Recommendations: Increase metoprolol succinate dosing slightly, to 37.5 mg BID for additional heart rate control. Continue low dose lisinopril, oral furosemide, spironolactone, aspirin, and atorvastatin as ordered. Continue conservative medical management, without future ischemic workup/evaluation/intervention. Cardiology will sign off. Please contact with any questions or concerns. I spent a total of 23 minutes on the date of service in preparation, delivery, and documentation of the care provided to this patient excluding any time spent in the performance of separately billed services. This visit was a split-shared visit with the substantive portion of the medical decision making performed by the supervising event decorator/billing provider. Admission and Anticipated Discharge Date Admission Date: March 02, 2024 Supervising Physician Co-Signing Physician Notes Patient was seen and personally examined. Full assessment and plan as outlined above. Care and management discussed with advanced provider and personally endorsed. Frail-appearing female clinically responded to diuretics and adjustments in medical therapies. Now on GDMT metoprolol succinate increased No plans for more aggressive therapies I spent a total of 15 minutes on the date of service in preparation, delivery, and documentation of the care provided to this patient excluding any time spent in the performance of separately billed services Subjective Patient seen and examined. Chart, medications, and telemetry reviewed. Daughter and son at bedside; daughter notes plans to go to [facility] tomorrow Less tired. No trouble breathing. No chest pain or palpitations. Telemetry: Sinus in the 80's, frequent ventricular ectopy Review of Systems Review of Systems: See above. Otherwise, negative or noncontributory. Physical Exam Physical Exam: General: A&Ox3. Hard of hearing HENT: Normocephalic. Atraumatic. Eyes: PER. Conjunctiva pink, sclera clear. Neck: Normal JVP. Heart: RRR. Apical systolic murmur. Lungs: Diminished. Decreased. No rales. No wheeze. Abdomen: +BS. Soft. Nontender. No masses or organomegaly. Extremities: Minimal pretibial edema. No clubbing. No cyanosis Limited neurological examination is without focal deficits. Pulses: Posterior tibial=2/4. Results & Data Vital Signs (Past 12 Hours) Vital Signs Temp Pulse Pulse Resp BP Pulse Ox O2 Del Method 03/09/24 10:40 36.6 C 66 18 117/66 98 Nasal Cannula 03/09/24 10:19 Nasal Cannula 03/09/24 09:21 94 03/09/24 07:33 92 H 03/09/24 07:23 36.4 C L 68 18 117/78 96 Nasal Cannula 03/09/24 02:44 36.4 C L 70 18 116/72 96 Nasal Cannula O2 Flow Rate 03/09/24 10:40 1 03/09/24 10:19 1 03/09/24 09:21 1 03/09/24 07:33 03/09/24 07:23 1 03/09/24 02:44 1.0 Laboratory Results Cardiac Enzymes 03/09/24 Range/Units 07:32 AST 19 (13-39) U/L CBC 03/09/24 Range/Units 07:32 WBC 7.20 (4.8-10.8) K/ul RBC 5.80 H (4.20-5.40) M/uL Hgb 15.7 (12.0-16.0) g/dl Hct 50.3 H (37.0-47.0) % Plt Count 163 (130-400) K/uL Comprehensive Metabolic Panel 03/09/24 Range/Units 07:32 Sodium 140 (136-145) mmol/L Potassium 4.6 (3.5-5.1) mmol/L Chloride 101 (98-107) mmol/L Carbon Dioxide 34 H (21-32) mmol/L BUN 45 H (6-23) mg/dl Creatinine 0.74 D (0.6-1.2) mg/dl Glucose 131 H (70-99(Fasting)) mg/dl Calcium 8.1 L (8.6-10.3) mg/dl AST 19 (13-39) U/L ALT 8 (7-52) U/L Alkaline Phosphatase 64 (34-104) U/L Total Protein 5.2 L (6.0-8.3) gm/dl Albumin 2.8 L (3.4-5.0) gm/dl Intake and Output 03/08/24 03/09/24 03/09/24 22:59 06:59 14:59 Intake Total 250 / 800 250 / 800 Output Total 500 / 1350 300 / 1350 Balance -250 / -550 -50 / -550 Intake: Oral 250 / 800 250 / 800 Output: Urine Amount (Catheter) 500 / 1350 300 / 1350 Fox/Indwelling 500 / 1350 300 / 1350 Other: Weight 65.7 kg Weight Measurement Method Built in [facility]
[2024-03-09] MEDS: METOPROLOL SUCC 25MG EXT REL TAB PO SCH (20:49)
[2024-03-10 07:24] VITALS: RESP 18
--- NOTE | 2024-03-10 09:18 | Cardiology Progress Note ---
Date of Service March 10, 2024 Assessment & Plan (1) Acute on chronic heart failure with reduced ejection fraction and diastolic dysfunction: (2) Pleural effusion: (3) LV dysfunction: (4) Sinus tachycardia: Plan Frail 73 year old female with newly observed acute decompensated systolic heart failure, bilateral pleural effusions Echo with moderately reduced LV systolic function, EF 30 to 35%, moderate to severe mitral regurgitation. Narrow QRS duration NYHA Class III, multifactorial Elevated troponin in the setting of heart failure, demand supply ischemia Trivial loculated right lateral pericardial effusion. No echocardiographic indications of tamponade. Frequent premature ventricular complexes, asymptomatic. Recommendations: 1. Increase metoprolol succinate to 50 mg BID 2. Continue low dose lisinopril, oral furosemide, spironolactone, aspirin, and atorvastatin. 3. Continue conservative medical management, without future ischemic workup/evaluation/intervention. 4. Cardiology will sign off. Please contact with any questions or concerns. I spent a total of 18 minutes on the date of service in preparation, delivery, and documentation of the care provided to this patient excluding any time spent in the performance of separately billed services. This visit was a split-shared visit with the substantive portion of the medical decision making performed by the supervising slide machine tender/billing provider. Admission and Anticipated Discharge Date Admission Date: March 02, 2024 Supervising Physician Co-Signing Physician Notes Patient was seen and personally examined. Full assessment and plan as outlined above. Care and management discussed with advanced provider and personally endorsed. Frail-appearing female clinically responded to diuretics and adjustments in medical therapies. Now on GDMT metoprolol succinate increased No plans for more aggressive therapies Contact you with any further question I spent a total of 10 minutes on the date of service in preparation, delivery, and documentation of the care provided to this patient excluding any time spent in the performance of separately billed services Subjective Patient seen and examined. Chart, medications, and telemetry reviewed. Eating breakfast. Feeling better overall. No chest pain or palpitations. Telemetry: Sinus in the 90's, with ventricular ectopy Review of Systems Review of Systems: As above. Otherwise, negative or noncontributory. Physical Exam Physical Exam: General: A&Ox3. Hard of hearing HENT: Normocephalic. Atraumatic. Eyes: PER. Conjunctiva pink, sclera clear. Neck: Normal JVP. Heart: RRR. Apical systolic murmur. Lungs: Diminished. Decreased. No rales. No wheeze. Abdomen: +BS. Soft. Nontender. No masses or organomegaly. Extremities: No edema. No clubbing. No cyanosis Limited neurological examination is without focal deficits. Pulses: Posterior tibial=2/4. Results & Data Vital Signs (Past 12 Hours) Vital Signs Temp Pulse Resp BP Pulse Ox O2 Del Method O2 Flow Rate 03/10/24 07:21 36.4 C L 76 18 121/83 95 03/10/24 03:00 36.8 C 64 20 114/65 92 Room Air 03/10/24 00:00 Room Air 03/09/24 22:30 37.0 C 82 20 114/65 92 Nasal Cannula 2 Laboratory Results Intake and Output 03/09/24 03/10/24 03/10/24 22:59 06:59 14:59 Intake Total 250 / 1194 Output Total 300 / 1450 800 / 1450 Balance -50 / -256 -800 / -256 Intake: Oral 250 / 1194 Output: Urine Amount (Catheter) 300 / 1450 800 / 1450 Fox/Indwelling 300 / 1450 800 / 1450 Other: Weight 67.1 kg Weight Measurement Method Built in [facility]
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
[2024-03-10 11:29] VITALS: TEMP 97.3; O2SAT 96
[2024-03-10 14:04] VITALS: BP 107/64; PULSE 71
[2024-03-10] MEDS ORDERED: METOPROLOL SUCC 50MG EXT REL TAB PO SCH (21:00)
== END 2024-03-10 14:57 | DRG 291 ==
LOC: ED 14:29 → 4W 16:16 → SUATTDRO 16:16 → 4W 17:56
DX: E87.6 Hypokalemia; N39.0 Urinary tract infection, site not specified; Z79.84 Long term (current) use of oral hypoglycemic drugs; I34.0 Nonrheumatic mitral (valve) insufficiency; Z79.4 Long term (current) use of insulin; E03.9 Hypothyroidism, unspecified; I24.89 Other forms of acute ischemic heart disease; I13.0 Hypertensive heart and chronic kidney disease with heart failure and stage 1 through stage 4 chronic kidney disease, or unspecified chronic kidney disease; E11.22 Type 2 diabetes mellitus with diabetic chronic kidney disease; N18.30 Chronic kidney disease, stage 3 unspecified; J90 Pleural effusion, not elsewhere classified; I50.43 Acute on chronic combined systolic (congestive) and diastolic (congestive) heart failure